=== PATIENT | female | born 1945 | race Caucasian/White ===

== ENCOUNTER → 2017-05-28 09:00 | Outpatient (CLI) | payer MEDICARE, SELFPAY ==
[2017-05-28 10:45] LABS: Anion Gap 9 (5-15); BUN 15 mg/dL (7-18); BUN/Creat Ratio 23.4 RATIO (10-20); Calcium,Total 9.1 mg/dL (8.5-10.1); Chloride 98 mmol/L (98-107); Cholesterol 161 mg/dL (200); Creatinine, Serum 0.64 mg/dL (0.55-1.02); EST Glomerular Filtration Rate 97 mL/min (>60); Est Glom Filt Rate - Afr Amer 117 mL/min (>60); Glucose 177 mg/dL (74-106); High Density Lipoprotein 52 mg/dL; Potassium 3.4 mmol/L (3.5-5.1); Sodium Level 133 mmol/L (136-145); Thyroid Stim Hormone (TSH) 1.05 uIU/mL (0.358-3.74); Triglycerides 81 mg/dL; Very Low Density Lipoprotein 16 mg/dL (5-40)
== END ==
PROVIDERS: Family Provider Family Medicine; PCP Family Medicine; Visit Provider Family Medicine
DX: E87.1 Hypo-osmolality and hyponatremia (principal); E11.9 Type 2 diabetes mellitus without complications; R94.6 Abnormal results of thyroid function studies
CPT/HCPCS: 36415; 80048; 80061; 84443

== ENCOUNTER → 2017-10-05 11:55 | Outpatient (CLI) | payer MEDICARE, SELFPAY ==
[2017-10-05 13:56] LABS: Hematocrit 39.2 % (37-47); Hemoglobin 13.5 g/dl (12.0-15.0); Mean Corp Hgb Conc 34.4 g/gl (32-36); Mean Corpuscular Hgb 29.6 pg (27.0-32.0); Mean Platelet Vol. 11.3 fl (6.2-12.0); Platelet Count 271 K/mm3 (150-450); RBC Distribution Width CV 12.5 % (11.6-14.6); RBC Distribution Width SD 39.4 fl (35.1-43.9); Red Blood Count 4.56 M/mm3 (4.2-5.4); White Blood Count 7.4 K/mm3 (4.4-11.0)
[2017-10-05 13:57] LABS: Scan Indicated on CBC? Y/N NO
[2017-10-05 14:11] LABS: Anion Gap 9 (5-15); BUN 16 mg/dL (7-18); Calcium,Total 9.1 mg/dL (8.5-10.1); Chloride 96 mmol/L (98-107); Creatinine, Serum 0.67 mg/dL (0.55-1.02); EST Glomerular Filtration Rate 92 mL/min (>60); Est Glom Filt Rate - Afr Amer 111 mL/min (>60); Glucose 201 mg/dL (74-106); Potassium 3.7 mmol/L (3.5-5.1); Sodium Level 129 mmol/L (136-145)
== END ==
PROVIDERS: Family Provider Family Medicine; PCP Family Medicine; Visit Provider Family Medicine
DX: E11.9 Type 2 diabetes mellitus without complications (principal); I10 Essential (primary) hypertension
CPT/HCPCS: 36415; 80048; 85027

== ENCOUNTER → 2018-01-05 11:19 | Outpatient (CLI) | payer MEDICARE, SELFPAY ==
[2017-06-01 14:09] VITALS: BMI 28.3
[2018-01-05 14:22] LABS: Anion Gap 9 (5-15); BUN 16 mg/dL (7-18); BUN/Creat Ratio 24.3 RATIO (10-20); Chloride 93 mmol/L (98-107); Creatinine, Serum 0.66 mg/dL (0.55-1.02); EST Glomerular Filtration Rate 93 mL/min (>60); Est Glom Filt Rate - Afr Amer 113 mL/min (>60); Glucose 295 mg/dL (74-106); Potassium 3.9 mmol/L (3.5-5.1); Sodium Level 128 mmol/L (136-145)
--- OUTSIDE RECORDS SUMMARY | 2018-03-02 19:49 | XMS RPT_ITS ---
:1945 Author Organization OHIP Care Team Providers Name Role Phone Black Naye Attending Unavailable Ajay Sanchez Attending Unavailable Ajay Sanchez Primary Care Unavailable Lorena Sal Attending Unavailable Yehuda Gilbert Attending Unavailable Ajay Sanchez Referring Unavailable Ajay Sanchez Primary Care Unavailable Ajay Sanchez Attending Unavailable Ajay Sanchez Primary Care Unavailable Ajay Sanchez Attending Unavailable Ajay Sanchez Primary Care Unavailable PROBLEMS PROBLEMS DATE TYPE CONDITION / CODE ATTENDING STATUS SOURCE Unknown I10 - Essential (primary) Yehuda Gilbert Active [place] [facility] hypertension / Community I10(ICD-10) Hospital Repository Unknown E78.00 - Pure Ofelia, Hiko Active [place] [facility] hypercholesterolemia, Community unspecified / Hospital E78.00(ICD-10) Repository Unknown E78.0 - Pure Ofelia, Yehuda Active [place] [facility] hypercholesterolemia / Community E78.0(ICD-10) Hospital Repository Unknown E87.1 - Hypo-osmolality Ranney, Active [place] [facility] and hyponatremia / [facility] Community E87.1(ICD-10) Hospital Repository PROCEDURES PROCEDURES No Procedure Records FoundRESULTS RESULTS BASIC METABOLIC Collected: 01/05/2018 Status: F Source: [place] PROFILE (BMP) 11:21 AM [facility] REPOSITORY Order Comment: Order Date: 10/06/17 Order Info: 0667-1 - BMP TYPE CODE TESTS RESULT OUT OF RANGE REFERENCE UNITS LAB L501.0100 74-106 mg/dL High GLU 295 Result Comment: Glucose result greater than or equal to 200 mg/dL suggests DIABETES MELLITUS per A.D.A. criteria. Please note revised GLUCOSE reference range effective 2017. LAB L501.1000 7-18 mg/dL Normal BUN 16 LAB L501.1100 0.55-1.02 mg/dL Normal CREAT,SERUM 0.66 Result Comment: The validity of the calculated GFR AND GFRAA in patients over 70 years has not been determined. Clinical correlation is essential. LAB L501.1110 >60 mL/min Normal EST GFR 93 Result Comment: Non- GFR Calc LAB L501.1115 >60 mL/min Normal EST GFR - AA 113 Result Comment: GFR Calc LAB L501.1300 10-20 RATIO High BUN/CRE 24.3 LAB L501.2200 8.5-10.1 mg/dL CA Normal 9.0 LAB L501.5300 136-145 mmol/L Low NA 128 LAB L501.5600 3.5-5.1 mmol/L K Normal 3.9 LAB L501.5900 98-107 mmol/L Low CL 93 LAB L501.6100 21.0-32.0 mmol/L Normal CO2 26.0 LAB L501.6200 5-15 Normal GAP 9 Performed By: #### L500.2500 #### [facility] [address] [place], [address] CBC-COMPLETE BLOOD CNT Collected: 10/05/2017 Status: F Source: [place] NO DIFF 11:56 AM [facility] REPOSITORY Order Comment: Order Date: 10/05/17 Order Info: [id number] - CBC TYPE CODE TESTS RESULT OUT OF RANGE REFERENCE UNITS LAB L100.1000 4.4-11.0 K/mm3 Normal WBC 7.4 LAB L100.1200 4.2-5.4 M/mm3 Normal RBC 4.56 LAB L100.1300 12.0-15.0 g/dl Normal HGB 13.5 LAB L100.1400 37-47 % Normal HCT 39.2 LAB L100.1500 81-99 fL Normal MCV 86.0 LAB L100.1600 27.0-32.0 pg Normal MCH 29.6 LAB L100.1700 32-36 g/gl Normal MCHC 34.4 LAB L100.1810 11.6-14.6 % Normal RDW CV 12.5 LAB L100.1820 35.1-43.9 fl Normal RDW SD 39.4 LAB L100.1900 150-450 K/mm3 Normal PLT 271 LAB L100.2000 6.2-12.0 fl Normal MPV 11.3 Performed By: #### L100.0500, L500.2500 #### [facility] [address] [place], [address] BASIC METABOLIC Collected: 10/05/2017 Status: F Source: [place] PROFILE (BMP) 11:56 AM [facility] REPOS[facility]ORY Order Comment: Order Date: 10/05/17 Order Info: [id number] - BMP TYPE CODE TESTS RESULT OUT OF RANGE REFERENCE UNITS LAB L501.0100 74-106 mg/dL High GLU 201 Result Comment: Glucose result greater than or equal to 200 mg/dL suggests DIABETES MELLITUS per A.D.A. criteria. Please note revised GLUCOSE reference range effective 2017. LAB L501.1000 7-18 mg/dL Normal BUN 16 LAB L501.1100 0.55-1.02 mg/dL Normal CREAT,SERUM 0.67 Result Comment: The validity of the calculated GFR AND GFRAA in patients over 70 years has not been determined. Clinical correlation is essential. LAB L501.1110 >60 mL/min Normal EST GFR 92 Result Comment: Non- GFR Calc LAB L501.1115 >60 mL/min Normal EST GFR - AA 111 Result Comment: GFR Calc LAB L501.1300 10-20 RATIO High BUN/CRE 24.0 LAB L501.2200 8.5-10.1 mg/dL CA Normal 9.1 LAB L501.5300 136-145 mmol/L Low NA 129 LAB L501.5600 3.5-5.1 mmol/L K Normal 3.7 LAB L501.5900 98-107 mmol/L Low CL 96 LAB L501.6100 21.0-32.0 mmol/L Normal CO2 24.0 LAB L501.6200 5-15 Normal GAP 9 Performed By: #### L100.0500, L500.2500 #### [facility] [address] [place], [address] CARDIOLOGY VISIT Observed: 06/01/2017 Status: F Source: [place] REPORT 2:38 PM [facility] REPOSITORY [facility] [address] [place] [address] OFFICE VISIT Date of Service: 06/01/17 MR#: [id number] Acct: [id number] Name: ISIDRO GONZALES Rep #: [id number] : 1945 Provider: Yehuda Gilbert MD Age/Sex: 72/F Location: [facility] Status: Signed [facility] HPI Chief Complaint: Follow up Details: ISIDRO GONZALES, is a 72 F who presents to the office today for follow-up on her blood pressure. She is a lady with a history of hypertension and white coat hypertension who returns for follow-up visit. She denies any chest pain or shortness breath or paroxysmal nocturnal dyspnea pedal edema she tells me that she recently saw you in her office and her blood pressure was under good control. She has not had any neck arm or jaw discomfort suggest angina no dizziness no diaphoresis no near syncope or syncope. Her last echocardiogram was performed in 2014 at other time ejection fraction was noted to be 60% with no wall motion abnormalities present. Her physical exam today demonstrates clear lung waite regular rate and rhythm and no pedal edema. Intake Vital Signs06/01/17 Height 5 ft 2 in 06/01/17 Weight: 155 lb 06/01/17 Body Mass Index (BMI) 28.3 06/01/17 Blood Pressure 182/80 Intake Visit Reasons: 6 wk FU (pt r/s from 12/17/16 to 06/01/17) Allergies No Known Allergies Allergy (Unverified 06/01/17 14:09) Medications diltiazem CD 180 mg capsule,extended release 24 hr 180 mg PO QDAY 05/27/17 [History Confirmed 06/01/17] lisinopril 40 mg tablet 40 mg PO QDAY 05/27/17 [History Confirmed 06/01/17] losartan 100 mg-hydrochlorothiazide 25 mg tablet 1 tab PO QDAY 05/27/17 [History Confirmed 06/01/17] metformin ER 750 mg tablet,extended release 24 hr 750 mg PO QDAY 05/27/17 [History Confirmed 06/01/17] metoprolol tartrate 100 mg tablet 100 mg PO BID 05/27/17 [History Confirmed 06/01/17] [facility] Medical History Hyperlipidemia (Chronic) Hypertension (Chronic) First degree atrioventricular block by electrocardiogram (Chronic) Encounter for long-term current use of high risk medication (Chronic) Carotid bruit (Chronic) Social History Smoking Status: Never smoker alcohol intake: current details: occasional substance use type: does not use ROS Const Const: Negative for fatigue, weakness, weight gain, weight loss, frequent falls or excessive sweating Eyes Eyes: Negative for change in vision, blurry vision or transient loss of vision ENT ENT: Negative for dizziness or balance problems Cardio Chest Pain: No Edema: None Muscle aches with walking: None Resp Respiratory: Negative for SOB with activity or SOB at rest GI GI: Negative vomiting or vomiting blood/hematemesis : Negative for hematuria Musc Musc: Negative for balance problems, muscle aches/ myalgia, muscle weakness or joint pain Skin Skin: Negative non-healing lesions or rash Neuro Neuro: Negative for weakness, blurry vision, dizziness, lightheadedness, frequent falls or orthostatic symptoms Ray Hematologic/Lymphatic: Negative for easy bleeding Endo Endo: Negative for fatigue or excessive sweating Psych Psych: Negative for anxiety or depression Allergy Allergy/Immunology: Negative for hives, Negative for rash Cardiology Exam Const Appearance: cooperative, healthy appearing, well developed, well groomed and no acute distress Nutritional Appearance: well nourished and average body habitus Orientation: alert, awake and oriented x3 Head Head: normal to inspection, normocephalic and atraumatic Ears: hearing grossly normal bilaterally and external ears normal Nose: external nose normal, nasal mucous membranes and turbinates normal, nares normal, septum normal, no nasal discharge Face and Sinus: face symmetric Mouth: oral mucosae normal, tongue normal, oropharynx normal and moist mucous membranes Teeth and gingiva: dentition normal Throat: posterior oropharynx normal, tonsils normal and uvula midline Eyes General: appearance normal, both eyes and all related structures Eyelids: eyelids normal Conjunctivae: conjunctivae normal Pupils: PERRL, normal by confrontation and accommodation normal EOM: EOM intact bilaterally Neck Neck: normal visual inspection, trachea midline and no JVD JVD: +5 Carotids: normal carotid upstroke and bounding pulses Chest Chest inspection: normal inspection of the chest, symmetric chest movement and normal respiratory effort Auscultation: Bilateral: Clear to Auscultation Cardio Palpation: normal PMI Rate: regular rate Rhythm: regular rhythm Heart sounds: S1 normal, S2 normal and normal, physiologic split S2; negative rub, gallop or murmur GI GI: normal to inspection, soft, no hepatosplenomegaly and bowel sounds present Neuro General: alert, awake, oriented x3, no focal sensory deficit, gait normal and moves all extremities Skin Skin: no rashes or lesions noted Extremities Pulses: Normal: Right Femoral Pulse, Left Femoral Pulse, Right Dorsalis Pedis Pulse, Left Dorsalis Pedis Pulse, Right Posterior Tibial Pulse, Left Posterior Tibial Pulse, Right Radial Pulse, Left Radial Pulse Lower Extremity Edema: None: Bilateral Musculoskel Musculoskeletal: No joint tenderness Psych Psychological: normal affect Assessment AND Plan 1. Essential hypertension I10 Plan Her blood pressure appears to be elevated here today she tells me that it is usually better in the office as you know we have performed ambulatory 25 monitoring on her and they have been also elevated. She remains on medications which she is compliant with. Her left ventricular evaluation however does not demonstrate any significant thickening to suggest sustained blood pressures. Her most recent chemistry profile demonstrated mild hypokalemia only. 2. Pure hypercholesterolemia E78.00; E78.0 Plan She remains on lipid-lowering medication. Her most recent lipid profile demonstrated a cluster 161 LDL of 93 and HDL of 52. Thank you for allowing me to participate in the care of your patient. 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) Coding Level of Care Code Off vis,est,level 3 Diagnoses Essential hypertension I10 Hypertension type: essential hypertension Pure hypercholesterolemia E78.00; E78.0 Hyperlipidemia type: pure hypercholesterolemia Coding Level of Care Code Off vis,est,level 3 Diagnoses Essential hypertension I10 Hypertension type: essential hypertension Pure hypercholesterolemia E78.00; E78.0 Hyperlipidemia type: pure hypercholesterolemia 06/01/17 1438 <Electronically signed by Yehuda Gilbert MD> Date Yehuda Gilbert MD Cosigner Signature: Date (if applicable) CC: Ajay Sanchez MD BASIC METABOLIC Collected: 05/28/2017 Status: F Source: [place] PROFILE (BMP) 9:02 AM [facility] REPOS[facility] Order Comment: Order Date: 05/18/17 Order Info: [id number] - BMP Order Info: [id number] - LIPID Order Info: 3016-3 - TSH TYPE CODE TESTS RESULT OUT OF RANGE REFERENCE UNITS LAB L501.0100 74-106 mg/dL High GLU 177 Result Comment: Fasting Glucose result greater than or equal to 126 mg/dL suggests DIABETES MELLITUS per A.D.A. criteria. Please note revised GLUCOSE reference range effective 2017. LAB L501.1000 7-18 mg/dL Normal BUN 15 LAB L501.1100 0.55-1.02 mg/dL Normal CREAT,SERUM 0.64 Result Comment: The validity of the calculated GFR AND GFRAA in patients over 70 years has not been determined. Clinical correlation is essential. LAB L501.1110 >60 mL/min Normal EST GFR 97 Result Comment: Non- GFR Calc LAB L501.1115 >60 mL/min Normal EST GFR - AA 117 Result Comment: GFR Calc LAB L501.1300 10-20 RATIO High BUN/CRE 23.4 LAB L501.2200 8.5-10.1 mg/dL CA Normal 9.1 LAB L501.5300 136-145 mmol/L Low NA 133 LAB L501.5600 3.5-5.1 mmol/L Low K 3.4 LAB L501.5900 98-107 mmol/L CL Normal 98 LAB L501.6100 21.0-32.0 mmol/L Normal CO2 26.0 LAB L501.6200 5-15 Normal GAP 9 Performed By: #### L500.2500, L500.4100, L501.9520 #### [facility] [address] [place], [place], [address] LIPID PROFILE Collected: 05/28/2017 Status: F Source: [place] 9:02 AM [facility]POS[facility] Order Comment: Order Date: 05/18/17 Order Info: [id number] - BMP Order Info: [id number] - LIPID Order Info: 3016-3 - TSH TYPE CODE TESTS RESULT OUT OF RANGE REFERENCE UNITS LAB L501.4900 200 mg/dL Normal CHOL 161 Result Comment: <200 mg/dL Desirable 200-240 mg/dL Borderline >240 mg/dL High Risk LAB L501.5000 mg/dL Normal TRIG 81 Result Comment: The drugs N-Acetylcysteine and Metamizole may falsely depress this assay. Serum Triglycerides Reference Interval Normal <150 mg/dL Borderline high 150 - 199 mg/dL High 200 - 499 mg/dL Very High > or = 500 mg/dL LAB L501.6400 mg/dL Normal HDL 52 Result Comment: The drugs N-Acetylcysteine and Metamizole may falsely depress this assay. Reference Range HDL <40 mg/dL Low HDL Cholesterol HDL >or= 60 mg/dL High HDL Cholesterol LAB L501.6500 0-130 mg/dL Normal LDL 93 LAB L501.6600 5-40 mg/dL Normal VLDL 16 Performed By: #### L500.2500, L500.4100, L501.9520 #### [facility] [address] [place], [address] THYROID STIM HORMONE Collected: 05/28/2017 Status: F Source: [place] (TSH) 9:02 AM [facility]POS[facility] Order Comment: Order Date: 05/18/17 Order Info: [id number] - BMP Order Info: [id number] - LIPID Order Info: 3016-3 - TSH TYPE CODE TESTS RESULT OUT OF RANGE REFERENCE UNITS LAB L501.9520 0.358-3.74 uIU/mL Normal TSH 1.05 Performed By: #### L500.2500, L500.4100, L501.9520 #### [facility] [address] [place], [address] ALLERGIES ALLERGIES DATE TYPE / CODE NAME / CODE REACTION SEVERITY SOURCE 06/01/2017 Drug No Known Unknown [facility] Allergy/4160 Allergies/F00 Hospital 46186(SNOMED 8031831(RXNOR Repository CT) M) ENCOUNTERS ENCOUNTERS ADMIT/DISCHARGE ACCOUNT ADMITTING ENCOUNTER LOCATION SOURCE NUMBER CLASS 01/05/2018 [id number] Amb[place] [facility] ing:MFPLAB Repository 10/05/2017 [id number] Ambulatory [place] 5 [facility] ing:MFPLAB Repository 06/01/2017/ [id number] Ambulatory [facility]MSBuilding:B [place] [facility] 0 [facility] Repository 05/31/2017 [id number] Ambulatory [facility]:B [place] 0 [facility] Repository 05/28/2017 [id number] Ambulatory [place] 8 [facility] ing:MFPLAB Repository 05/27/2017 [id number] Ambulatory BMS [place] [facility] Repository PAYERS PAYERS ENCOUNTER GUARANTOR PAYER SUBSCRIBER SOURCE 01/05/2018 MOZELL [id number] Primary [facility] [place] [facility] [id number] [id number]: (448) [facility] [phone] () Number: [id number] [facility] [address]RE: 01/05/2018 Secondary NOT GIVENUNK [place] Insurance:SELF PAY [facility] Number: Effective Repository Date:2018-01-05 10/05/2017 MOZELL [id number] Primary [place] Insurance:[place] YODER[place]OB: [place] SECURE CARE [id number] [id number]: [phone]) MEDICAREPolicy Repository [phone] () Number: [id number] Date: [address] [address]JF: 10/05/2017 Secondary NOT GIVENUNK [place] Insurance:SELF PAY [facility] Number: Effective Repository Date:2017-10-05 06/01/2017 MOZELL [id number] [facility] [place]ER[place]OB[place] [id number] [id number]: ([phone]) MEDICAREPolicy Repository [phone] () Number: [id number] Date: [address] [address]AT: 06/01/2017 Secondary NOT GIVENUNK [place] Insurance:SELF PAY [facility] Number: Effective Repository Date:2017-06-01 05/31/2017 Mozell [id number] Primary NOT GIVENUNK [place] Insurance:SELF PAY [facility] [address]Ecu: [phone]) Number: Effective Repository [phone] () Date:2017-05-31 05/28/2017 MOZELL [id number] Primary [facility] [place]ODER[place]OB[place] [id number] [id number]: [phone]) MEDICAREPolicy Repository [phone] (HP) Number: [id number] Date: [address] [address]YX: 05/28/2017 Secondary NOT GIVENUNK [place] Insurance:SELF PAY [facility] Number: Effective Repository Date:2017-05-28 05/27/2017 Isidro Agosto Primary NOT GIVENUNK [place] Insurance:SELF PAY [facility] [id number]: [phone]) Number: Effective Repository [phone] () Date:2017-05-27
== END ==
PROVIDERS: Family Provider Family Medicine; PCP Family Medicine; Visit Provider Family Medicine
DX: E87.1 Hypo-osmolality and hyponatremia (principal)
CPT/HCPCS: 36415; 80048

== ENCOUNTER → 2018-02-21 11:34 | Outpatient (CLI) | payer MEDICARE, SELFPAY ==
[2017-06-01 14:09] VITALS: BMI 28.3
[2018-02-21 14:15] LABS: Anion Gap 12 (5-15); BUN 18 mg/dL (7-18); BUN/Creat Ratio 26.5 RATIO (10-20); Calcium,Total 9.2 mg/dL (8.5-10.1); Chloride 92 mmol/L (98-107); Creatinine, Serum 0.68 mg/dL (0.55-1.02); EST Glomerular Filtration Rate 90 mL/min (>60); Est Glom Filt Rate - Afr Amer 109 mL/min (>60); Glucose 262 mg/dL (74-106); Potassium 3.6 mmol/L (3.5-5.1); Sodium Level 130 mmol/L (136-145)
== END ==
PROVIDERS: Family Provider Family Medicine; PCP Family Medicine; Visit Provider Family Medicine
DX: I10 Essential (primary) hypertension (principal)
CPT/HCPCS: 36415; 80048

== ENCOUNTER → 2018-05-18 09:18 | Outpatient (CLI) | payer MEDICARE, SELFPAY ==
[2017-06-01 14:09] VITALS: BMI 28.3
[2018-05-18 10:34] LABS: Hematocrit 39.6 % (37-47); Hemoglobin 13.8 g/dl (12.0-15.0); Mean Corp Hgb Conc 34.8 g/gl (32-36); Mean Corpuscular Hgb 29.7 pg (27.0-32.0); Mean Corpuscular Volume 85.2 fL (81-99); Mean Platelet Vol. 11.8 fl (6.2-12.0); Platelet Count 257 K/mm3 (150-450); RBC Distribution Width CV 13.1 % (11.6-14.6); RBC Distribution Width SD 40.3 fl (35.1-43.9); Red Blood Count 4.65 M/mm3 (4.2-5.4); White Blood Count 7.1 K/mm3 (4.4-11.0)
[2018-05-18 10:35] LABS: Scan Indicated on CBC? Y/N NO
[2018-05-18 11:27] LABS: Anion Gap 9 (5-15); BUN 14 mg/dL (7-18); BUN/Creat Ratio 23.5 RATIO (10-20); Calcium,Total 8.7 mg/dL (8.5-10.1); Chloride 104 mmol/L (98-107); Cholesterol 179 mg/dL (200); EST Glomerular Filtration Rate 105 mL/min (>60); Est Glom Filt Rate - Afr Amer 127 mL/min (>60); Glucose 186 mg/dL (74-106); High Density Lipoprotein 47 mg/dL; Potassium 3.7 mmol/L (3.5-5.1); Sodium Level 138 mmol/L (136-145); Thyroid Stim Hormone (TSH) 0.62 uIU/mL (0.358-3.74); Triglycerides 80 mg/dL; Very Low Density Lipoprotein 16 mg/dL (5-40)
[2018-05-18 11:28] LABS: Vitamin D,25 Hydroxy 28.9 ng/mL (29.95-100.01)
== END ==
PROVIDERS: Family Provider Family Medicine; PCP Family Medicine; Referring Provider Family Medicine; Visit Provider Family Medicine
DX: E11.9 Type 2 diabetes mellitus without complications (principal); I10 Essential (primary) hypertension; E87.1 Hypo-osmolality and hyponatremia; E55.9 Vitamin D deficiency, unspecified
CPT/HCPCS: 36415; 80048; 80061; 82306; 84443; 85027

== ENCOUNTER → 2018-07-11 | Outpatient (CLI) | payer MEDICARE, SELFPAY ==
[2018-06-07 10:03] VITALS: BMI 29.1
--- NOTE | 2018-07-11 08:59 | CDU_ITS ---
Reason For Study: BRUIT Rt. Velocities/BP Lt. Velocities/BP Prox CCA 86.9/16.4 cm/sec. Prox CCA 83.8/22.4 cm/sec. Mid CCA 76.8/14.2 cm/sec. Mid CCA 81.6/20.2 cm/sec. Dist CCA 76.8/14.2 cm/sec. Dist CCA 86.0/13.6 cm/sec. Prox ICA 66.4/15.5 cm/sec. Prox ICA 75.0/13.6 cm/sec. Mid ICA 61.2/11.6 cm/sec. Mid ICA 86.0/15.8 cm/sec. Dist ICA 46.1/13.1 cm/sec. Dist ICA 83.8/20.2 cm/sec. Rt. ICA/CCA = 66.4/76.8=0.86. Lt. ICA/CCA = 86.0/81.6=1.0. Prox ECA 110.7/12.9 cm/sec. Prox ECA 88.2/7.0 cm/sec. Rt. Vert. 80.9/14.6. cm/sec. Lt. Vert. 45.7/0.0 cm/sec. Right Extracranial There is intimal thickening but no significant atherosclerotic plaque noted in the right common carotid artery. There is homogeneous, smooth atherosclerotic plaque noted in the right internal carotid artery. There is no significant atherosclerotic plaque noted in the right external carotid artery. Antegrade flow is noted in the right vertebral artery. Left Extracranial There is homogeneous, smooth atherosclerotic plaque noted in the left common carotid artery. There is homogeneous, smooth atherosclerotic plaque noted in the left internal carotid artery. There is intimal thickening but no significant atherosclerotic plaque noted in the left external carotid artery. Antegrade flow is noted in the left vertebral artery. There is heterogeneous, irregular atherosclerotic plaque noted in the left bulb. Interpretation Summary Mild (<50%) stenosis right extracranial internal carotid. Mild (<50%) stenosis left extracranial internal carotid. Flow within the vertebral arteries is antegrade bilaterally. Ordering Physician: Lorena Good Referring Physician: Oziel Luis Performed By: Adelita Jara, LAZ, RVT
== END | disposition home or self-care (01) ==
LOC: CVS 08:58
PROVIDERS: Family Provider Family Medicine; PCP Family Medicine; Referring Provider Physician Assistant Medical; Visit Provider Physician Assistant Medical
DX: R09.89 Other specified symptoms and signs involving the circulatory and respiratory systems (principal)
CPT/HCPCS: 93880

== ENCOUNTER → 2018-10-11 | Outpatient (CLI) | payer MEDICARE, SELFPAY ==
[2018-06-07 10:03] VITALS: BMI 29.1
[2018-10-11 10:53] LABS: Anion Gap 8 (5-15); BUN 14 mg/dL (7-18); BUN/Creat Ratio 21.6 RATIO (10-20); Chloride 103 mmol/L (98-107); Creatinine, Serum 0.65 mg/dL (0.55-1.02); EST Glomerular Filtration Rate 95 mL/min (>60); Est Glom Filt Rate - Afr Amer 115 mL/min (>60); Glucose 184 mg/dL (74-106); Potassium 3.1 mmol/L (3.5-5.1); Sodium Level 137 mmol/L (136-145)
== END | disposition home or self-care (01) ==
LOC: MFPLAB 09:23
PROVIDERS: Family Provider Family Medicine; PCP Family Medicine; Referring Provider Family Medicine; Visit Provider Family Medicine
DX: I10 Essential (primary) hypertension (principal)
CPT/HCPCS: 36415; 80048; 82306

== ENCOUNTER → 2019-01-11 11:31 | Outpatient (CLI) | payer MEDICARE, SELFPAY ==
[2018-06-07 10:03] VITALS: BMI 29.1
[2019-01-11 16:26] LABS: Anion Gap 7 (5-15); BUN 15 mg/dL (7-18); BUN/Creat Ratio 25.3 RATIO (10-20); Calcium,Total 9.5 mg/dL (8.5-10.1); Chloride 99 mmol/L (98-107); Creatinine, Serum 0.59 mg/dL (0.55-1.02); EST Glomerular Filtration Rate 105 mL/min (>60); Est Glom Filt Rate - Afr Amer 127 mL/min (>60); Glucose 123 mg/dL (74-106); Potassium 3.5 mmol/L (3.5-5.1); Sodium Level 133 mmol/L (136-145)
[2019-01-11 16:32] LABS: Vitamin D,25 Hydroxy 45.2 ng/mL (29.95-100.01)
== END ==
PROVIDERS: Family Provider Family Medicine; PCP Family Medicine; Referring Provider Family Medicine; Visit Provider Family Medicine
DX: E87.6 Hypokalemia (principal); E55.9 Vitamin D deficiency, unspecified
CPT/HCPCS: 36415; 80048; 82306

== ENCOUNTER → 2019-08-30 11:03 | Outpatient (CLI) | payer MEDICARE, SELFPAY ==
[2019-05-30 08:09] VITALS: BMI 28.9
[2019-08-30 13:13] LABS: ALB/GLOB Ratio 0.7 RATIO (0.9-2.4); AST(SGOT) 25 U/L (15-37); Alanine Aminotransfer ALT/SGPT 31 U/L (13-56); Albumin, Serum 3.5 g/dL (3.2-5.0); Alkaline Phosphatase 92 U/L (45-117); Anion Gap 5 (5-15); BUN 17 mg/dL (7-18); BUN/Creat Ratio 27.8 RATIO (10-20); Calcium,Total 8.9 mg/dL (8.5-10.1); Chloride 101 mmol/L (98-107); Cholesterol 172 mg/dL (200); Creatinine, Serum 0.61 mg/dL (0.55-1.02); EST Glomerular Filtration Rate 101 mL/min (>60); Est Glom Filt Rate - Afr Amer 123 mL/min (>60); Globulin 4.8 g/dL (2.2-4.2); Glucose 176 mg/dL (74-106); High Density Lipoprotein 41 mg/dL; Potassium 3.5 mmol/L (3.5-5.1); Protein, Total 8.3 g/dL (6.4-8.2); Sodium Level 134 mmol/L (136-145); Triglycerides 123 mg/dL; Very Low Density Lipoprotein 25 mg/dL (5-40)
== END ==
PROVIDERS: PCP Family Medicine; Referring Provider Family Medicine; Visit Provider Family Medicine
DX: E11.9 Type 2 diabetes mellitus without complications (principal)
CPT/HCPCS: 36415; 80053; 80061

== ENCOUNTER → 2019-09-06 07:52 | Outpatient (CLI) | payer MEDICARE, SELFPAY ==
[2019-05-30 08:09] VITALS: BMI 28.9
--- NOTE | 2019-09-06 07:57 | RDU_ITS ---
Reason For Study: Benign essential hypertension Right Renal Artery Left Renal Artery Right renal artery ostium 97.9/15.7 Left renal artery ostium 125.3/19.4 RSV/EDV. PSV/EDV. Right renal artery proximal Left renal artery proximal PSV/EDV 161.8/30.3 PSV/EDV. 114.3/21.2 . Right renal artery mid 158.2/23 Left renal artery mid 86.4/17.2 PSV/EDV. PSV/EDV . Right renal artery distal Left renal artery distal 92.4/17.9 139.9/28.5 PSV/EDV. PSV/EDV. Right Renal Parenchyma Left Renal Parenchyma Upper Pole Medula 30/5.8 PSV/EDV. Left upper pole medulla 36.8/7.3 Right upper pole medulla EDR 0.19 . PSV/EDV . Right upper pole medulla R.I. Left upper pole medulla EDR 0.20 . 0.81 . Left upper pole medulla R.I. 0.80 . Upper Dylan Cortx 25.6/4.7 PSV/EDV. UP Cortex 25.7/5.5 PSV/EDV. Right upper pole cortex EDR 0.18 . Left upper pole cortex EDR 0.21 . Right upper pole cortex R.I. 0.82 . Left upper pole cortex R.I. 0.79 . Right lower Pole medulla 30.6/5.8 Left lower Pole medulla 37.4/8.5 PSV/EDV . PSV/EDV . Right lower pole medulla EDR 0.19 . Left lower pole medulla EDR 0.23 . Right lower pole medulla R.I. Left lower pole medulla R.I. 0.77 . 0.81 . Lower Pole Cortx 28.2/5.5 PSV/EDV. Lower Pole Cortex 21.8/5.3 PSV/EDV. Left lower pole cortex EDR 0.20 . Right lower pole cortex EDR 0.24 . Left lower pole cortex R.I. 0.81 . Right lower pole cortex R.I. 0.76 . Left Renal Hilar Right Renal Hilar LT Hilar avg 61.4/15.3 PSV/EDV . Right Hilar avg 59/10.6 PSV/EDV. Left hilar acceleration time 50 Right hilar acceleration time 60 m/sec. m/sec. Left Renal Dimensions Right Renal Dimensions Left kidney size 10.77 cm . Right kidney size 9.71 cm . Left cortical dimension 1.53 cm . Right cortical dimension 1.58 cm . Aorta Proximal abdominal aorta 1.70 x 1.72 cm . Proximal abdominal aorta peak systolic velocity is 101.6 cm/sec . Distal abdominal aorta 1.16 x 1.20 cm . Distal abdominal aorta peak systolic velocity is 132.6 cm/sec . Interpretation Summary Dimensions of the intra-abdominal aorta appear normal, without evidence of aneurysmal dilatation. Renal artery velocities are bilaterally normal. Acceleration times are normal bilaterally. There is no evidence of hemodynamically significant renal artery stenosis on either side. Renovascular resistance appears to be bilaterally elevated . The right cortical dimension is increased. The left cortical dimension is increased. Kidneys are normal in size, though the left kidney is more than one centimeter larger than the right kidney. Ordering Physician: Iker Sanchez Referring Physician: Iker Sanchez Performed By: Gwen Crooks RVT
== END ==
PROVIDERS: PCP Family Medicine; Referring Provider Family Medicine; Visit Provider Family Medicine
DX: I10 Essential (primary) hypertension (principal)
CPT/HCPCS: 93975

== ENCOUNTER → 2020-05-30 09:25 | Outpatient (CLI) | payer MEDICARE, SELFPAY ==
[2020-05-28 13:34] VITALS: BMI 28.7
[2020-05-30 13:13] LABS: Vitamin B12 593 pg/mL (211-911); Vitamin D,25 Hydroxy 40.4 ng/mL
[2020-05-30 13:40] LABS: ALB/GLOB Ratio 0.8 RATIO (0.9-2.4); AST(SGOT) 21 U/L (15-37); Alanine Aminotransfer ALT/SGPT 25 U/L (13-56); Albumin, Serum 3.7 g/dL (3.2-5.0); Alkaline Phosphatase 81 U/L (45-117); Anion Gap 5 (5-15); BUN 24 mg/dL (7-18); BUN/Creat Ratio 32.9 RATIO (10-20); Calcium,Total 8.8 mg/dL (8.5-10.1); Chloride 104 mmol/L (98-107); Cholesterol 179 mg/dL (200); Creatinine, Serum 0.73 mg/dL (0.55-1.02); EST Glomerular Filtration Rate 82 mL/min (>60); Est Glom Filt Rate - Afr Amer 100 mL/min (>60); Globulin 4.6 g/dL (2.2-4.2); Glucose 202 mg/dL (74-106); High Density Lipoprotein 46 mg/dL; Potassium 3.4 mmol/L (3.5-5.1); Protein, Total 8.3 g/dL (6.4-8.2); Sodium Level 134 mmol/L (136-145); Thyroid Stim Hormone (TSH) 0.63 uIU/mL (0.358-3.74); Triglycerides 88 mg/dL; Very Low Density Lipoprotein 18 mg/dL (5-40)
== END ==
PROVIDERS: PCP Family Medicine; Visit Provider Family Medicine
DX: E11.9 Type 2 diabetes mellitus without complications (principal); E55.9 Vitamin D deficiency, unspecified
CPT/HCPCS: 36415; 80053; 80061; 82306; 82607; 84443

== ENCOUNTER → 2020-06-12 13:06 | Outpatient (CLI) | payer MEDICARE, SELFPAY ==
[2020-05-28 13:34] VITALS: BMI 28.7
--- NOTE | 2020-06-12 13:08 | ECHOD_ITS ---
Reason For Study: HYPERTENSION Procedure This was a 2D Doppler, Color Flow transthoracic echocardiogram. Exam performed in department. Left Ventricle Normal LV size. Left ventricular systolic function is normal. The estimated ejection fraction is 60 %. Stage 1 diastolic dysfunction. No regional wall motion abnormalities noted. Right Ventricle Normal RV size. Normal systolic function. Atria Normal left atrium. Normal right atrium. Mitral Valve Normal mitral valve. Tricuspid Valve Normal tricuspid valve. Mild (1+) tricuspid valve insufficiency. Pulmonary artery systolic pressure is 34 mmHg. Aortic Valve Normal aortic valve. Trisinus/trileaflet aortic valve. Pulmonic Valve Normal pulmonic valve. Great Vessels Normal aortic root. The pulmonary artery is normal size. Normal inferior vena cava. Pericardium/Pleural No pericardial effusion. MMode/2D Measurements & Calculations LVIDd: 4.8 cm IVSd: 0.93 cm Ao root diam: 3.2 cm LVIDs: 3.1 cm LVPWd: 0.93 cm RVDd: 3.6 cm FS: 34.4 % LAV(MOD-bp): 61.5 ml LA A4 area: 20.6 cm2 LA dimension(2D): 3.6 cm LAV(MOD-bp) Indexed: 36.1 ml/m2 LAV(MOD-sp2): 57.3 ml LAV(MOD-sp4): 57.0 ml RA A4 area: 21.2 cm2 Time Measurements MV dec time: 0.18 sec Doppler Measurements & Calculations MV E max leonard: 89.3 cm/sec Lat Peak E' Leonard: 6.9 cm/sec Med Peak E' Leonard: 6.8 cm/sec MV A max leonard: 103.6 cm/sec E/E' lat: 12.9 E/E' med: 13.1 MV E/A: 0.86 Ao V2 max: 139.6 cm/sec LV V1 max: 116.4 cm/sec PA V2 max: 124.5 cm/sec Ao max P.8 mmHg LV V1 max P.4 mmHg TR max leonard: 268.5 cm/sec TR max P.8 mmHg ECHO/Echo Complete Interpretation Summary Normal LV size. Left ventricular systolic function is normal. The estimated ejection fraction is 60 %. Stage 1 diastolic dysfunction. Pulmonary artery systolic pressure is 34 mmHg. Ordering Physician: Lorena Good Referring Physician: Ajay Sanchez Performed By: Adelita Jara RDCS, RVT
== END ==
PROVIDERS: PCP Family Medicine; Referring Provider Physician Assistant Medical; Visit Provider Physician Assistant Medical
DX: R01.1 Cardiac murmur, unspecified (principal)
CPT/HCPCS: 93306

== ENCOUNTER 2021-05-22 09:41 | Outpatient (CLI) | payer MEDICARE, SELFPAY ==
[2021-05-22 12:17] LABS: ALB/GLOB Ratio 0.8 RATIO (0.9-2.4); AST(SGOT) 18 U/L (15-37); Alanine Aminotransfer ALT/SGPT 26 U/L (13-56); Albumin, Serum 3.5 g/dL (3.2-5.0); Alkaline Phosphatase 82 U/L (45-117); Anion Gap 7 (5-15); BUN 17 mg/dL (7-18); Chloride 100 mmol/L (98-107); Cholesterol 177 mg/dL (200); Creatinine, Serum 0.63 mg/dL (0.55-1.02); EST Glomerular Filtration Rate 98 mL/min (>60); Est Glom Filt Rate - Afr Amer 118 mL/min (>60); Globulin 4.3 g/dL (2.2-4.2); Glucose 242 mg/dL (74-106); High Density Lipoprotein 44 mg/dL; Protein, Total 7.8 g/dL (6.4-8.2); Sodium Level 132 mmol/L (136-145); Triglycerides 128 mg/dL; Very Low Density Lipoprotein 26 mg/dL (5-40)
== END 2021-05-22 23:59 | disposition home or self-care (01) ==
LOC: MFPLAB 09:42
PROVIDERS: PCP Family Medicine; Referring Provider Family Medicine; Visit Provider Family Medicine
DX: E11.9 Type 2 diabetes mellitus without complications (principal)
CPT/HCPCS: 36415; 80053; 80061

== ENCOUNTER → 2021-08-26 | Outpatient (CLI) | payer MEDICARE, SELFPAY ==
[2021-08-28 13:07] LABS: PROEL- A/G Ratio 0.9 (0.7-1.7); PROEL- Albumin 3.6 g/dL (2.9-4.4); PROEL- Alpha-1 Globulin 0.2 g/dL (0.0-0.4); PROEL- Beta Globulin 1.4 g/dL (0.7-1.3); PROEL- Gamma Globulin 1.5 g/dL (0.4-1.8); PROEL- Globulin, Total 4.1 g/dL (2.2-3.9); PROEL- TOTAL PROTEIN 7.7 g/dL (6.0-8.5); PROELU- Albumin, Urine 70.1 % (.); PROELU- Alpha-1-Globulin,Ur 4.7 % (.); PROELU- Alpha-2-Globulin,Ur 4.6 % (.); PROELU- Beta Globulin, Ur 11.7 % (.); PROELU- Gamma Globulin, Ur 8.9 % (.); Total Protein, Ur 124.9 mg/dL (Not Estab.)
== END | disposition home or self-care (01) ==
LOC: MFPLAB 11:00
PROVIDERS: PCP Family Medicine; Visit Provider Family Medicine
DX: E88.09 Other disorders of plasma-protein metabolism, not elsewhere classified (principal)
CPT/HCPCS: 36415; 84165; 84166

== ENCOUNTER → 2022-06-04 | Outpatient (CLI) | payer MEDICARE, SELFPAY ==
[2022-06-04 10:53] LABS: Vitamin B12 494 pg/mL (211-911)
== END | disposition home or self-care (01) ==
LOC: MFPLAB 09:10
PROVIDERS: PCP Family Medicine; Visit Provider Family Medicine
DX: E11.65 Type 2 diabetes mellitus with hyperglycemia (principal)
CPT/HCPCS: 36415; 82607

== ENCOUNTER → 2023-02-19 | Outpatient (CLI) | payer MEDICARE, SELFPAY ==
[2023-02-19 12:46] LABS: ALB/GLOB Ratio 0.8 RATIO (0.9-2.4); AST(SGOT) 20 U/L (15-37); Alanine Aminotransfer ALT/SGPT 26 U/L (13-56); Albumin, Serum 3.7 g/dL (3.2-5.0); Alkaline Phosphatase 82 U/L (45-117); Anion Gap 8 (5-15); BUN 20 mg/dL (7-18); BUN/Creat Ratio 28.4 RATIO (10-20); Calcium,Total 9.3 mg/dL (8.5-10.1); Chloride 103 mmol/L (98-107); Cholesterol 185 mg/dL (200); EST Glomerular Filtration Rate 85 mL/min (>60); Est Glom Filt Rate - Afr Amer 103 mL/min (>60); Globulin 4.5 g/dL (2.2-4.2); Glucose 272 mg/dL (74-106); High Density Lipoprotein 45 mg/dL; Potassium 3.8 mmol/L (3.5-5.1); Protein, Total 8.2 g/dL (6.4-8.2); Sodium Level 135 mmol/L (136-145); Thyroid Stim Hormone (TSH) 0.75 uIU/mL (0.358-3.74); Triglycerides 145 mg/dL; Very Low Density Lipoprotein 29 mg/dL (5-40)
== END | disposition home or self-care (01) ==
LOC: MFPLAB 10:19
PROVIDERS: PCP Family Medicine; Visit Provider Family Medicine
DX: E11.65 Type 2 diabetes mellitus with hyperglycemia (principal); E55.9 Vitamin D deficiency, unspecified
CPT/HCPCS: 36415; 80053; 80061; 82306; 84443

== ENCOUNTER → 2023-09-07 | Outpatient (CLI) | payer MEDICARE, SELFPAY ==
[2023-09-07 13:00] LABS: Anion Gap 8 (5-15); BUN 32 mg/dL (7-18); BUN/Creat Ratio 31.4 RATIO (10-20); Calcium,Total 9.7 mg/dL (8.5-10.1); Chloride 95 mmol/L (98-107); Creatinine, Serum 1.02 mg/dL (0.55-1.02); EST Glomerular Filtration Rate 56 mL/min (>60); Est Glom Filt Rate - Afr Amer 67 mL/min (>60); Glucose 278 mg/dL (74-106); Potassium 5.1 mmol/L (3.5-5.1); Sodium Level 124 mmol/L (136-145)
== END | disposition home or self-care (01) ==
LOC: MFPLAB 10:45
PROVIDERS: PCP Family Medicine; Visit Provider Family Medicine
DX: E11.59 Type 2 diabetes mellitus with other circulatory complications (principal)
CPT/HCPCS: 36415; 80048

== ENCOUNTER → 2023-11-08 | Outpatient (CLI) | payer MEDICARE, SELFPAY ==
[2023-11-08 16:13] LABS: Anion Gap 9 (5-15); BUN 18 mg/dL (7-18); BUN/Creat Ratio 22.8 RATIO (10-20); Calcium,Total 9.7 mg/dL (8.5-10.1); Chloride 98 mmol/L (98-107); Creatinine, Serum 0.79 mg/dL (0.55-1.02); EST Glomerular Filtration Rate 74 mL/min (>60); Est Glom Filt Rate - Afr Amer 90 mL/min (>60); Glucose 247 mg/dL (74-106); Potassium 4.1 mmol/L (3.5-5.1); Sodium Level 130 mmol/L (136-145)
[2023-11-09 14:23] LABS: Thyroid Stim Hormone (TSH) 0.397 uIU/mL (0.358-3.740)
== END | disposition home or self-care (01) ==
LOC: MFPLAB 11:17
PROVIDERS: PCP Family Medicine; Visit Provider Family Medicine
DX: E87.1 Hypo-osmolality and hyponatremia (principal); E03.9 Hypothyroidism, unspecified
CPT/HCPCS: 36415; 80048; 84443

== ENCOUNTER 2024-09-19 10:07 | Emergency (ER) | payer MEDICARE, SELFPAY ==
[2024-09-19 10:07] VITALS: BP 199/73; PULSE 79; RESP 14; TEMP 36.6; O2SAT 98; BMI 28.8
--- NOTE | 2024-09-19 10:21 | EDS_ITS ---
HPI History of Present Illness Chief Complaint: Fall Detail of Chief Complaint: Trauma to forehead, face and nose Informant: patient Onset/Context/Timing Onset: Hours Mechanism/Context: Blunt Injury and Fall Location of pain/injuries: - (Forehead, Dylan orbital bilateral and nose) Quality of Pain: Dull Current Severity: Mild Maximum Severity: Mild Worsened by: Nothing Relieved by: Nothing Associated Symptoms Associated Symptoms: Positive for Amnesia; Negative for Parasthesias, Weakness, Loss of function, Inability to ambulate or Loss of consciousness Narrative Narrative: Patient is 79-year-old woman. Patient apparently tripped falling forward. She did not break her fall based on no injury to her fingers. She does not recall. She does complain of facial/head pain. She denies double vision blurred vision loss of vision. Denies change in her hearing. She denies malalignment of her teeth. She denies neck pain. She denies paresthesia, anesthesia or motor w eakness. She denies chest pain or shortness of breath. Prior similar symptoms: No Recent Illness/Hospitalization: No [facility] Medical History Type 2 diabetes mellitus Essential (primary) hypertension Hyperlipidemia First degree atrioventricular block by electrocardiogram Encounter for long-term current use of high risk medication Carotid bruit Home Medications ?Medication ?Instructions ?Recorded ?Last Taken ?Type metformin 750 mg tablet,extended 750 mg PO QDAY Unknown History release 24 hr hydrochlorothiazide 12.5 mg capsule 12.5 mg PO DAILY 0 05/30/19 Unknown History lisinopril 40 mg tablet 40 mg PO QDAY #90 tabs 05/29 Unknown Rx losartan 100 mg tablet 100 mg PO DAILY 90 days #90 tabs 05/30/19 Unknown Rx glimepiride 4 mg tablet 8 mg PO DAILY 09/16/23 Unkno wn History metoprolol tartrate 100 mg tablet 100 mg PO BID #180 t abs 05/10/24 Unknown Rx diltiazem HCl 180 mg 180 mg PO QDAY #90 caps 08/08 06/02 Unknown Rx capsule,extended release 24 hr Allergy/AdvReac Type Severity Reaction Status Date / Time amlodipine AdvReac ankle Verified 09/19/24 10:08 swelling Family History Other Adopted Social History Smoking Status: Never smoker alcohol intake: current details: occasional substance use type: does not use ROS ROS ED Constitutional Constitutional ED: Denies chills or fever(s) Eyes Eyes: Denies blurry vision or change in vision ENT ENT ED: Reports other Details: Denies epistaxis. Does complain of nose pain. ; Denies rhinorrhea or sore throat Cardiovascular Cardiovascular: Denies chest pain or palpitations Respiratory/Chest Respiratory/Chest: Denies cough or dyspnea Gastrointestinal Gastrointestinal: Denies nausea or vomiting Musculoskeletal Musculoskeletal: Denies arthralgias, myalgias or neck pain Integumentary Reports Abrasions Neurologic Neurologic: Denies headache(s), paresthesias or weakness Hematologic/Lymphatic Hematologic/Lymphatic: Denies easy bleeding or easy bruising EXAM Physical Exam Const Vital Signs: 09/19/24 10:07 09/19/24 10:07 Temperature 98 F Temperature Source Temporal Pulse Rate 79 Respiratory Rate 14 Blood Pressure 199/73 H Blood Pressure Mean 115 Pulse Ox 98 Oxygen Delivery Method Room Air Positive well nourished and well developed General Appearance ED: well developed and NAD HEENT Reports TM's clear HEENT Narrative: Forehead, nose with bilateral periorbital ecchymosis. trauma and tenderness Nose: Negative for septum abnormal Tympanic Membrane ED: Yes TM's clear Eyes PERRL and EOMs intact bilaterally General Eye ED: Yes other Other Details: There is no subconjunctival hemorrhage. There is no step-off with palpation infraorbital rim, there is no hyperesthesia in Frable nerve and there is no evidence of entrapment with upward gaze. Neck full ROM Neck Narrative: There is no posterior midline neck pain. General: Negative for tenderness Resp normal respiratory effort and clear to auscultation bilaterally Cardio regular rhythm Rate: regular rate Extremity normal to inspection and full ROM General Extremety ED: Negative for deformity or edema General Extremity: Negative for deformity or edema Neuro oriented x3, CN's II-XII intact bilaterally, moves all extremities, no focal motor deficits and no sensory deficits noted Neuro Narrative: There is no dysmetria. Marce Coma Scale: document GCS findings Spontaneous Obeys Commands Oriented 15 Sensorium / Orientation: alert Plantar Reflex: Downgoing: left and Upgoing (positive Babinski): right (No history of TIA or CVA.) Psych mental status grossly normal and thought process normal Skin No no wounds Trauma: abrasion MDM MDM MDM Narrative Medical decision making narrative: With head trauma, amnesia and Babinski sign on the right will obtain CT to rule out traumatic injury i.e. subdural hematoma, epidural hematoma, traumatic subarachnoid hemorrhage or intraparenchymal contusion. Since patient has no C- spine tenderness full active range of motion imaging of the neck was not obtained per Nexus criteria. Patient is on no antithrombotic or anticoagulant. Her medication list was reviewed. History & Record Review Discussion w/independent historian: Family (At exit interview there were family members that were present that were not initially. They states she had loss of consciousness for 30 to 60 seconds.) Additional record(s) reviewed:: Prior outpatient record (March 2013 for occupational therapy no other records available) Radiography Diagnostic Testing: Clinical Impression(s) from Imaging Studies Brain CT 09/19/24 10:21 IMPRESSION: CHRONIC CHANGES. NO ACUTE FINDINGS. Reading Location: [facility]--1 Facial/Sinus 09/19/24 10:59 IMPRESSION: Nasal fracture. Soft tissue swelling of the nasal region. Reading Location: [facility]--1 Treatment and Re-Evaluation Narrative: Patient's questions were answered. She was tried to use bacitracin. She was told she does have a concussion Discharge Plan Triage Chief Complaint: Fall ED Provider: Timbo Yao Dx/Rx/DC Orders Clinical Impression: Concussion with loss of consciousness, Hyperlipidemia, Essential (primary) hypertension, Type 2 diabetes mellitus, Abrasion, face without infection, Closed fracture nasal bone Instructions: ED Abrasion, ED Concussion, ED Nose Fracture, with X-Ray Prescriptions: No Action metformin 750 mg tablet extended release 24 hr 750 mg PO QDAY hydrochlorothiazide 12.5 mg capsule 12.5 mg PO DAILY Patient Comments: take 1 capsule by mouth every morning losartan 100 mg tablet 100 mg PO DAILY 90 Days Qty: 90 3RF lisinopril 40 mg tablet 40 mg PO QDAY Qty: 90 3RF glimepiride 4 mg tablet 8 mg PO DAILY metoprolol tartrate 100 mg tablet 100 mg PO BID Qty: 180 3RF diltiazem HCl 180 mg capsule,extended release 24hr 180 mg PO QDAY Qty: 90 3RF Primary Care Provider: Ajay Sanchez Referrals: Ajay Sanchez MD [Primary Care Provider] - As Needed Matt Gavin MD [Med Staff - Active Staff] - 1-2 Weeks Activity Restrictions/Additional Instructions: 1. You will feel worse over the next 24 hours. 2. You will hurt in more places and you presently do. 3. You may have bruises where you did not initially. 4. Apply bacitracin ointment 2-3 times a day to your abrasions. 5. Apply ice 6-8 times where you are sore or have bruising. Print Language: Albanian Disposition Disposition: Home, Self Care
--- NOTE | 2024-09-19 10:21 | CT_ITS ---
PROCEDURE: BRAIN/HEAD WITHOUT CONTRAST 09/19/2024 REASON FOR EXAM: TRAUMA, AMNESIA TECHNIQUE: BRAIN/HEAD WITHOUT CONTRAST Coronal and Sagittal reconstruction series were provided. One or more dose reduction techniques were used (e.g., Automated exposure control, adjustment of the mA and/or kV according to patient size, use of iterative reconstruction technique. RADIATION DOSE SUMMARY: CTDlvol: 44.99 mGy DLP: 745.49 mGycm COMPARISON: None FINDINGS: Brain: Low density in the periventricular white matter suggests mild chronic small vessel ischemic changes. Findings suggestive of a tiny old lacune in the insular cortex of the left temporal lobe. CSF Spaces: Mild generalized cerebral atrophy Sinuses/Mastoids: Clear at visualized levels Bones: No fracture CT/Brain/Head without Contrast IMPRESSION: CHRONIC CHANGES. NO ACUTE FINDINGS. Reading Location: [place] [id number]
--- NOTE | 2024-09-19 10:59 | CT_ITS ---
PROCEDURE: SINUS/FACIAL BONE 09/19/2024 REASON FOR EXAM: INJURY TECHNIQUE: SINUS/FACIAL BONE Coronal and Sagittal reconstruction series were provided. One or more dose reduction techniques were used (e.g., Automated exposure control, adjustment of the mA and/or kV according to patient size, use of iterative reconstruction technique). RADIATION DOSE SUMMARY: CTDlvol: 29.38 mGy DLP: 613.57 mGycm COMPARISON: None FINDINGS: Frontal: Unremarkable Ethmoid: Unremarkable Sphenoid: Unremarkable Maxillary: Minimal mucosal thickening at the base of the right maxillary sinus. Turbinates: Velia bullosa of the middle turbinates bilaterally. Nasal Septum: Minimally depressed nasal fracture. Nasal soft tissue swelling. Mastoids/Middle Ears: Unremarkable. CT/Sinus/Facial Bone IMPRESSION: Nasal fracture. Soft tissue swelling of the nasal region. Reading Location: [place] [id number]
[2024-09-19 11:44] VITALS: BP 187/86; PULSE 84; RESP 16; TEMP 36.4; O2SAT 100
--- NOTE | 2024-09-19 11:48 | ED.RN ---
Pt. told she would go home and take her BP meds.
== END 2024-09-19 11:49 | disposition home or self-care (01) ==
PROVIDERS: Emergency Provider Emergency Medicine; PCP Family Medicine; Visit Provider Emergency Medicine
DX: S02.2XXA Fracture of nasal bones, initial encounter for closed fracture (principal); E11.9 Type 2 diabetes mellitus without complications; I10 Essential (primary) hypertension; W01.0XXA Fall on same level from slipping, tripping and stumbling without subsequent striking against object, initial encounter; E78.5 Hyperlipidemia, unspecified; S00.81XA Abrasion of other part of head, initial encounter; S06.0X9A Concussion with loss of consciousness of unspecified duration, initial encounter; Z79.84 Long term (current) use of oral hypoglycemic drugs; Z79.899 Other long term (current) drug therapy
CPT/HCPCS: 70450; 70486; 99282

== ENCOUNTER → 2024-09-25 | Outpatient (CLI) | payer MEDICARE, SELFPAY ==
[2024-09-25 13:40] LABS: AST(SGOT) 23 U/L (<=31); Alanine Aminotransfer ALT/SGPT 17 U/L (<=34); Albumin, Serum 4.0 g/dL (3.4-4.8); Alkaline Phosphatase 59 U/L (35-104); Anion Gap 14 (5-15); BUN 14 mg/dL (4-19); BUN/Creat Ratio 25.8 RATIO (10-20); Calcium,Total 9.5 mg/dL (7.6-11.0); Carbon Dioxide 22.0 mmol/L (21.0-32.0); Chloride 95 mmol/L (98-108); Cholesterol 172 mg/dL (<=200); Globulin 3.7 g/dL (2.2-4.2); Glucose 204 mg/dL (70-99); Low Density Lipoprotein Calc. 114 mg/dL; Potassium 3.8 mmol/L (3.3-5.1); Triglycerides 68 mg/dL; Very Low Density Lipoprotein 14 mg/dL (5-40); cholesterol:hdl ratio screen 3.83
--- OUTSIDE RECORDS SUMMARY | 2024-09-25 21:05 | XMS RPT_ITS | CCD ---
Author Organization [facility] Care Team Providers Care Pulp Grinder Name Role Phone Ajay Sanchez Attending Unavailable Ajay Sanchez Primary Care Unavailable Ajay Sanchez Primary Care Unavailable Ajay Sanchez Attending Unavailable Ajay Sanchez Primary Care Unavailable Ajay Sanchez Attending Unavailable Ajay Sanchez Primary Care Unavailable Ajay Sanchez Referring Unavailable Roof [employer], Hayden Ruiz Attending Unavailable Daniel PARRISH, Dr. Moss Primary Care Provider Dr. Timbo Yao MD Emergency Provider [phone] Allergies Allergy Classification Reported Allergen(s) Allergy Type Date of Onset Reaction(s) Facility (5 sources) amLODIPine Drug Allergy 1 ankle swelling [facility] (1 source) amLODIPine Drug Allergy 4 [facility] Repository Medications Current Medications Medication Drug Class(es) Dates Sig (Normalized) Sig (Original) 24 hr dilTIAZem hydrochloride 180 mg extended release oral capsule (20 sources) Calcium Channel Mc Start: 05-27-2017 End: 08-21-2024 take 1 capsule by mouth once daily Diltiazem Hcl 180 mg capsule,extended release 24hr Active 180 mg PO daily 90 3 August 21, 2024 3:44pm glimepiride 4 mg oral tablet (6 sources) Sulfonylurea Start: 09-16-2023 take 2 tablets by mouth once daily Glimepiride 4 mg tablet Active 8 mg PO DAILY September 16, 2023 12:00am Start: 06-07-2018 End: 09-16-2023 take 1 tablet by mouth once daily in the morning Glimepiride 2 mg tablet Discontinued 2 mg PO EVERY MORNING June 07, 2018 12:00am September 16, 2023 10:53am hydroCHLOROthiazide 12.5 mg oral capsule (5 sources) Thiazide Diuretic Start: 05-30-2019 take 1 capsule by mouth once daily Hydrochlorothiazide 12.5 mg capsule Active 12.5 mg PO DAILY May 30, 2019 12:00am losartan potassium 100 mg oral tablet (10 sources) Angiotensin 2 Receptor Mc Start: 06-07-2018 End: 05-30-2019 take 1 tablet by mouth once daily Losartan 100 mg tablet Active 100 mg PO DAILY 90 90 3 May 30, 2019 9:33am Start: 06-07-2018 End: 05-30-2019 Losartan 100 mg tablet Disco ntinued PO 30 30 0 June 07, 2018 12:00am May 30, 2019 9:34am 24 hr metFORMIN hydrochloride 750 mg extended release oral tablet (5 sources) Biguanide Start: 05-27-2017 take 1 tablet by mouth once daily Metformin 750 mg tablet extended release 24 hr Active 750 mg PO daily May 27, 2017 12:00am metoprolol tartrate 100 mg oral tablet (20 sources) beta-Adrenergic Mc Start: 05-27-2017 End: 05-10-2024 take 1 tablet by mouth twice daily Metoprolol Tartrate 100 mg tablet Active 100 mg PO TWICE A DAY 180 3 May 10, 2024 4:01pm Completed/Discontinued Medications Medication Drug Class(es) Dates Sig (Normalized) Sig (Original) amLODIPine 5 mg oral tablet (5 sources) Dihydropyridine Calcium Channel Mc Start: 9 End: 0 take 1 tablet by mouth once daily Amlodipine 5 mg tablet Discontinued 5 mg PO DAILY June 07, 2018 12:00am May 30, 2019 9:22am doxazosin 2 mg oral tablet (5 sources) alpha-Adrenergic Mc Start: 8 End: 8 take 1 tablet by mouth once daily Doxazosin 2 mg tablet Discontinued 2 mg PO daily May 27, 2017 12:00am June 01, 2017 2:09pm hydroCHLOROthiazide 25 mg / losartan potassium 100 mg oral tablet (10 sources) Thiazide Diuretic, Angiotensin 2 Receptor Mc Start: 8 End: 9 Losartan-Hydroch lorothiazide 100-25 mg tablet Discontinued 1 {tbl} PO daily 90 3 September 01, 2017 9:37am June 07, 2018 10:28am Start: 05-27-2017 End: 06-07-2018 take 1 tablet by mouth once daily Losartan-Hydrochlorothiazide Discontinue d 1 TABLET PO daily 90 September 01, 2017 8:37am June 07, 2018 9:28am lisinopril 40 mg oral tablet (20 sources) Angiotensin Converting Enzyme Inhibitor Start: 05-27-2017 End: 05-30-2019 take 1 tablet by mouth once daily Lisinopril 40 mg tablet Discontinued 40 mg PO daily 90 November 25, 2018 9:54am May 30, 2019 9:34am Problems Problem Classification Problem Date Documented Date Episodic/Chronic Conduction disorders (5 sources) 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; Translations: [Atrioventricular block, first degree] 05-31-2017 Chronic Diabetes mellitus with complications (2 sources) Type 2 diabetes mellitus with other circulatory complications; Translations: [Type 2 diabetes mellitus with hyperglycemia] Onset: 02-24-2023 Chronic Diabetes mellitus without complication (1 source) Type 2 diabetes mellitus; Translations: [Type 2 diabetes mellitus without complications] 09-16-2023 Chronic Disorders of lipid metabolism (5 sources) Hyperlipidemia; Translations: [Hyperlipidemia, unspecified] 06-01-2017 Chronic Essential hypertension (5 sources) Essential hypertension; Translations: [Essential (primary) hypertension] 05-27-2019 Chronic Fluid and electrolyte disorders (1 source) Hypo-osmolality and hyponatremia; Translations: [Hypo-osmolality and hyponatremia] Onset: 12-01-2023 Episodic Heart valve disorders (5 sources) Heart murmur; Translations: [Cardiac murmur, unspecified] 05-28-2020 Episodic Intracranial injury (1 source) Concussion with loss of consciousness; Translations: [Concussion with loss of consciousness of unspecified duration, initial encounter] 09-19-2024 Episodic Other aftercare (4 sources) Patient encounter status; Translations: [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] 05-27-2019 Episodic Other aftercare (1 source) Long-term current use of drug therapy; Translations: [Other prison (current) drug therapy] 05-27-2019 Episodic Skull and face fractures (1 source) Closed fracture of nasal bones; Translations: [Fracture of nasal bones, initial encounter for closed fracture] 09-19-2024 Episodic Superficial injury; contusion (1 source) Abrasion and/or friction burn of face without infection; Translations: [Abrasion of other part of head, initial encounter] 09-19-2024 Episodic Results Test Name Value Interpretation Reference Range Facility Thyroid Stim Hormone (TSH)on 11-09-2023 TSH 0.397 uIU/mL Normal 0.358-3.740 [facility] Comment on above: Order Comment: Order Date: 11/09/23 Order Info: 3016-3 - TSH Performed By: #### L 501.9520 #### [facility] [address] [place], [address] Basic Metabolic Profile (BMP )on 11-08-2023 BUN/CRE 22.8 RATIO High 10-20 [facility] Comment on above: Order Comment: Order Date: 11/08/23 Order Info: 06 - BMP Performed By: #### L 500.2500 #### [facility] [address] [place], [address] CA,Total 9.7 mg/dL Normal 8.5-10.1 [facility] Comment on above: Order Comment: Order Date: 11/08/23 Order Info: 06 - BMP Performed By: #### L 500.2500 #### [facility] [address] [place], [address] Chloride [Moles/Vol] 98 mmol/L Normal 98-107 [facility] Comment on above: Order Comment: Order Date: 11/08/23 Order Info: 06 - BMP Performed By: #### L 500.2500 #### [facility] [address] [place], [address] CO2 [Moles/Vol] 23.0 mmol/L Normal 21.0-32.0 [facility] Comment on above: Order Comment: Order Date: 11/08/23 Order Info: 06 - BMP Performed By: #### L 500.2500 #### [facility] [address] [place], [address] Creatinine [Mass/Vol] 0.79 mg/dL Normal 0.55-1.02 [facility] Comment on above: Order Comment: Order Date: 11/08/23 Order Info: 06 - Cinegif Result Comment: The validity of the calculated GFR GFRAA in patients over 70 years has not been determined. Clinical correlation is essential. Performed By: #### L 500.2500 #### [facility] [address] [place], [place], [address] EST GFR - AA 90 mL/min Normal >60 [facility] Comment on above: Order Comment: Order Date: 11/08/23 Order Info: 666-02 - BMP Result Comment: Afri can Faroese GFR Calc Performed By: #### L 500.2500 #### [facility] [address] [place], [address] GAP 9 Normal 5-15 [facility] Comment on above: Order Comment: Order Date: 11/08/23 Order Info: 06 - BMP Performed By: #### L 500.2500 #### [facility] [address] [place], [place], [address] (371 GFR/1.73 sq M.predicted among non-blacks MDRD (S/P/Bld) [Vol rate/Area] 74 mL/min/{1.73_m2} Normal >60 [facility] Comment on above: Order Comment: Order Date: 11/08/23 Order Info: 06 - BMP Result Comment: Non- GFR Calc Performed By: #### L 500.2500 #### [facility] [address] [place], [place], [address] ([address] Glucose [Mass/Vol] 247 mg/dL High 74-106 [facility] Comment on above: Order Comment: Order Date: 11/08/23 Order Info: 06 - BMP Result Comment: Gluc ose result greater than or equal to 200 mg/dL suggests DIABETES MELLITUS per A.D.A. criteria. Performed By: #### L 500.2500 #### [facility] [address] [place], [place], [address] Potassium [Moles/Vol] 4.1 mmol/L Normal 3.5-5.1 [facility] Comment on above: Order Comment: Order Date: 11/08/23 Order Info: 0667-1 - BMP Performed By: #### L 500.2500 #### [facility] [address] [place], [place], [address] Sodium [Moles/Vol] 130 mmol/L Low 136-145 [facility] Comment on above: Order Comment: Order Date: 11/08/23 Order Info: 0667-1 - BMP Performed By: #### L 500.2500 #### [facility] [address] [place], [place], [address] Urea nitrogen [Mass/Vol] 18 mg/dL Normal 7-18 [facility] Comment on above: Order Comment: Order Date: 11/08/23 Order Info: 0667-1 - BMP Performed By: #### L 500.2500 #### [facility] [address] [place], [place], [address] Cardiology Visit Reporton Cardiology Visit Report [facility] [address] [place], [place] [address] OFFICE VISIT Date of Service: 09/16/23 MR#: [id number] Acct: [id number] Name: JOHN GONZALES Rep #: [id number] : 1945 Provider: RACHEL gambino Age/Sex: 78/F [place] [facility] [place] Status: Signed [facility] History of Present Illness Details: JOHN GONZALES, is a 78 F who presents to the office today for a cardiovascular follow-up. She is a lady with a history of hypertension and white coat hypertension. She denies chest, arm, jaw, or neck discomfort. She denies palpitations. She states occasional bilateral lower extremity edema during hot weather. She denies claudication. She denies shortness of breath with activity, shortness of breath at rest, orthopnea, or PND. She denies chronic cough. She denies significant, sudden weight gain. She denies lightheadedness, dizziness, near-syncope, or syncope. She denies blood in urine, blood in stool, or epistaxis. He denies fever with chills. She denies myalgia. She denies fatigue. Her exercise level has remained stable. She states her home blood pressure has been better and fluctuates. 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 Is patient in pain?: No Allergies amlodipine Adverse Reaction (Verified 09/16/23 10:52) ankle swelling Medications ???Medication ???Instructions ???Recorded ???Confirmed ???Type metformin 750 mg tablet,extended 750 mg PO QDAY 05/27/17 09/16/23 History release 24 hr hydrochlorothiazide 12.5 mg capsule 12.5 mg PO DAILY 05/30/19 09/16/23 History lisinopril 40 mg tablet 40 mg PO QDAY #90 tabs 05/30/19 09/16/23 Rx losartan 100 mg tablet 100 mg PO DAILY 90 days #90 tabs 05/30/19 09/16/23 Rx metoprolol tartrate 100 mg tablet 100 mg PO BID #180 tabs 05/03/23 09/16/23 Rx diltiazem HCl 180 mg 180 mg PO QDAY #90 caps 09/13/23 09/16/23 Rx capsule,extended release 24 hr glimepiride 4 mg tablet 8 mg PO DAILY 09/16/23 09/16/23 History Ejection fraction %: 60 Have you fallen in the past year?: No PFSH Medical History Type 2 diabetes mellitus Essential (primary) hypertension Hyperlipidemia First degree atrioventricular block by electrocardiogram Encounter for long-term current use of high risk medication Carotid bruit Family History (Reviewed 09/16/23 @ 11:29 by Hayden H Roof [employer], [employer]-C) Other Adopted Social History (Reviewed 09/16/23 @ 11:29 by Hayden White [employer], [employer]-C) Smoking Status: Never smoker alcohol intake: current details: occasional substance use type: does not use ROS Const Const: Negative for fatigue, weakness, headache(s), frequent falls, difficulty sleeping or excessive sweating Eyes Eyes: Negative for loss of peripheral vision, transient loss of vision, blurry vision, double vision or tunnel vision ENT ENT: Negative for headache(s), dizziness, Nosebleed/epistaxis or balance problems Cardio Chest Pain: No Palpitations: No Edema: Bilateral (Occasionally in hot temperatures) Muscle aches with walking: None Resp Respiratory: Negative for SOB with activity, SOB at rest, SOB orthopnea SOB lying down, Cough, snoring or paroxysmal nocturnal dyspnea GI GI: Negative nausea, vomiting, heartburn or black,tarry stools : Negative for hematuria Musc Musc: Negative for muscle aches/ myalgia, muscle weakness, joint pain or balance problems Skin Skin: Negative non-healing lesions, rash or unusual bruising Neuro Neuro: Negative for dizziness, lightheadedness, near syncope, syncope, frequent falls, headache(s), weakness, blurry vision, double vision or lack of coordination Ray Hematologic/Lymphatic: Negative for easy bleeding or easy bruising Endo Endo: Negative for fatigue, excessive sweating or increased thirst/drinking Psych Psych: Negative for anxiety or depression Allergy Allergy/Immunology: Negative for hives and Negative for rash Cardiology Exam Const Appearance: cooperative, healthy appearing, comfortable and no acute distress Nutritional Appearance: well nourished and overweight Orientation: alert, awake and oriented x3 Head Head: normal to inspection Ears: hearing grossly normal bilaterally Nose: external nose normal Face and Sinus: face symmetric Mouth: moist mucous membranes Eyes General: appearance normal, both eyes and all related structures Eyelids: eyelids normal E (more content not included)... Normal [facility] Basic Metabolic Profile (BMP )on 09-07-2023 BUN/CRE 31.4 RATIO High 10-20 [facility] Comment on above: Order Comment: Order Date: 09/07/23 Order Info: 0667-1 - BMP Performed By: #### L 500.2847 #### [facility] [place] [address] [place], [address] CA,Total 9.7 mg/dL Normal 8.5-10.1 [facility] Comment on above: Order Comment: Order Date: 09/07/23 Order Info: 0667- - BMP Performed By: #### L 500.2500 #### [facility] [address] [place], [address] Chloride [Moles/Vol] 95 mmol/L Low 98-107 [facility] Comment on above: Order Comment: Order Date: 09/07/23 Order Info: 06 - BMP Performed By: #### L 500.2500 #### [facility] [address] [place], [address] CO2 [Moles/Vol] 21.0 mmol/L Normal 21.0-32.0 [facility] Comment on above: Order Comment: Order Date: 09/07/23 Order Info: 06 - BMP Performed By: #### L 500.2500 #### [facility] [address] [place], [address] Creatinine [Mass/Vol] 1.02 mg/dL Normal 0.55-1.02 [facility] Comment on above: Order Comment: Order Date: 09/07/23 Order Info: 0667- - BMP Result Comment: The validity of the calculated GFR GFRAA in patients over 70 years has not been determined. Clinical correlation is essential. Performed By: #### L 500.2500 #### [facility] [address] [place], [address] EST GFR - AA 67 mL/min Normal >60 [facility] Comment on above: Order Comment: Order Date: 09/07/23 Order Info: 0667- - BMP Result Comment: Afri can Faroese GFR Calc Performed By: #### L 500.2500 #### [facility] [address] [place], [address] GAP 8 Normal 5-15 [facility] Comment on above: Order Comment: Order Date: 09/07/23 Order Info: 666-02 - BMP Performed By: #### L 500.2500 #### [facility] [address] [place], [place], [address] GFR/1.73 sq M.predicted among non-blacks MDRD (S/P/Bld) [Vol rate/Area] 56 mL/min/{1.73_m2} Low >60 [facility] Comment on above: Order Comment: Order Date: 09/07/23 Order Info: 666-02 - BMP Result Comment: Non- GFR Calc Performed By: #### L 500.2500 #### [facility] [address] [place], [place], [id number] Glucose [Mass/Vol] 278 mg/dL High 74-106 [facility] Comment on above: Order Comment: Order Date: 09/07/23 Order Info: 666-02 - BMP Result Comment: Gluc ose result greater than or equal to 200 mg/dL suggests DIABETES MELLITUS per A.D.A. criteria. Performed By: #### L 500.2500 #### [facility] [address] [place], [place], [address] Potassium [Moles/Vol] 5.1 mmol/L Normal 3.5-5.1 [facility] Comment on above: Order Comment: Order Date: 09/07/23 Order Info: 666-02 - BMP Performed By: #### L 500.2500 #### [facility] [address] [place], [address] Sodium [Moles/Vol] 124 mmol/L Low 136-145 [facility] Comment on above: Order Comment: Order Date: 09/07/23 Order Info: 666-02 - BMP Performed By: #### L 500.2500 #### [facility] [address] [place], [place], [id number] (206 Urea nitrogen [Mass/Vol] 32 mg/dL High 7-18 [facility] Comment on above: Order Comment: Order Date: 09/07/23 Order Info: 67-1 - BMP Performed By: #### L 500.2500 #### [facility] [address] [place], [address] Basophil percentageOrdered B y: Iker Sanchez on 02-19-2023 Bilirubin [Mass/Vol] 0.50 mg/dL 0.20-1.00 [facility] Comment on above: For patients on eltr ombopag therapy, use of Dimension [place] TBIL is not recommended. Chloride [Moles/Vol] 103 mmol/L 98-107 [facility] Cholesterol [Mass/Vol] 185 mg/dL <200 [facility] Comment on above: <200 mg/dL Desirable 200-240 mg/dL Borderline >240 mg/dL High Risk Glucose [Mass/Vol] 272 mg/dL 74-106 [facility] Comment on above: Glucose result great er than or equal to 200 mg/dLsuggests DIABETES MELLITUS per A.D.A. criteria. Potassium [Moles/Vol] 3.8 mmol/L 3.5-5.1 [facility] Comment on above: Slight Hemolysis, Re sult may be falsely increased. Protein [Mass/Vol] 8.2 g/dL 6.4-8.2 [facility] Sodium [Moles/Vol] 135 mmol/L 136-145 [facility] Triglyceride [Mass/Vol] 145 mg/dL <199 [facility] Comment on above: The drugs N-Acetylcy steine and Metamizole may falsely depress this assay.Serum Triglycerides Reference Interval Normal <150 mg/dL Borderline high 150 - 199 mg/dL High 200 - 499 mg/dL Very High > or = 500 mg/dL Comprehensive Metabolic Prof ilon 02-19-2023 Albumin [Mass/Vol] 3.7 g/dL Normal 3.2-5.0 [facility] Comment on above: Order Comment: Order Date: 08/31/22 Order Info: 0786-1 - CMP Order Info: [id number] - LIPID Order Info: 3016-3 - TSH Performed By: #### L 500.4100, L506.1000, L501.9520, L500.4050 #### [facility] [address] [place], [place], [address] Albumin/Globulin [Mass ratio] 0.8 {ratio} Low 0.9-2.4 [facility] Comment on above: Order Comment: Order Date: 08/31/22 Order Info: 785-02 - CMP Order Info: [id number] - LIPID Order Info: 3015-04 - TSH Performed By: #### L 500.4100, L506.1000, L501.9520, L500.4050 #### [facility] [address] [place], [address] ALK P 82 U/L Normal 45-117 [facility] Comment on above: Order Comment: Order Date: 08/31/22 Order Info: 785-02 - CMP Order Info: - LIPID Order Info: [id number] - TSH Performed By: #### L 500.4100, L506.1000, L501.9520, L500.4050 #### [facility] [address] [place], [address] ALT [Catalytic activity/Vol] 26 U/L Normal 13-56 [facility] Comment on above: Order Comment: Order Date: 08/31/22 Order Info: 785-02 - CMP Order Info: [id number] - LIPID Order Info: 3015-04 - TSH Performed By: #### L 500.4100, L506.1000, L501.9520, L500.4050 #### [facility] [address] [place], [address] AST [Catalytic activity/Vol] 20 U/L Normal 15-37 [facility] Comment on above: Order Comment: Order Date: 08/31/22 Order Info: 785-02 - CMP Order Info: [id number] - LIPID Order Info: [id number] - TSH Result Comment: Slig ht Hemolysis, Result may be falsely increased. Performed By: #### L 500.4100, L506.1000, L501.9520, L500.4050 #### [facility] [address] [place], [address] Bilirubin [Mass/Vol] 0.50 mg/dL Normal 0.20-1.00 [facility] Comment on above: Order Comment: Order Date: 08/31/22 Order Info: 785-02 - CMP Order Info: [id number] - LIPID Order Info: 3015-3 - TSH Result Comment: For patients on eltrombopag therapy, use of Dimension [place] TBIL is not recommended. Performed By: #### L 500.4100, L506.1000, L501.9520, L500.4050 #### [facility] [address] [place], [place], [address] BUN/CRE 28.4 RATIO High 10-20 [facility] Comment on above: Order Comment: Order Date: 08/31/22 Order Info: 785-02 - CMP Order Info: - LIPID Order Info: 3 - TSH Performed By: #### L 500.4100, L506.1000, L501.9520, L500.4050 #### [facility] [address] [place], [address] CA,Total 9.3 mg/dL Normal 8.5-10.1 [facility] Comment on above: Order Comment: Order Date: 08/31/22 Order Info: 07 - CMP Order Info: - LIPID Order Info: 3 - TSH Performed By: #### L 500.4100, L506.1000, L501.9520, L500.4050 #### [facility] [address] [place], [address] Chloride [Moles/Vol] 103 mmol/L Normal 98-107 [facility] Comment on above: Order Comment: Order Date: 08/31/22 Order Info: 0786- - CMP Order Info: - LIPID Order Info: 3 - TSH Performed By: #### L 500.4100, L506.1000, L501.9520, L500.4050 #### [facility] [address] [place], [address] CO2 [Moles/Vol] 24.0 mmol/L Normal 21.0-32.0 [facility] Comment on above: Order Comment: Order Date: 08/31/22 Order Info: 785- - CMP Order Info: - LIPID Order Info: [id number] - TSH Performed By: #### L 500.4100, L506.1000, L501.9520, L500.4050 #### [facility] [address] [place], [address] Creatinine [Mass/Vol] 0.70 mg/dL Normal 0.55-1.02 [facility] Comment on above: Order Comment: Order Date: 08/31/22 Order Info: 785-02 - CMP Order Info: - LIPID Order Info: [id number] - TSH Result Comment: The validity of the calculated GFR GFRAA in patients over 70 years has not been determined. Clinical correlation is essential. Performed By: #### L 500.4100, L506.1000, L501.9520, L500.4050 #### [facility] [address] [place], [address] EST GFR - AA 103 mL/min Normal >60 [facility] Comment on above: Order Comment: Order Date: 08/31/22 Order Info: 785-02 - CMP Order Info: - LIPID Order Info: [id number] - TSH Result Comment: Afri can Faroese GFR Calc Performed By: #### L 500.4100, L506.1000, L501.9520, L500.4050 #### [facility] [address] [place], [address] GAP 8 Normal 5-15 [facility] Comment on above: Order Comment: Order Date: 08/31/22 Order Info: 785- - CMP Order Info: - LIPID Order Info: [id number] - TSH Performed By: #### L 500.4100, L506.1000, L501.9520, L500.4050 #### [facility] [address] [place], [address] GFR/1.73 sq M.predicted among non-blacks MDRD (S/P/Bld) [Vol rate/Area] 85 mL/min/{1.73_m2} Normal >60 [facility] Comment on above: Order Comment: Order Date: 08/31/22 Order Info: 785-1 - CMP Order Info: [id number] - LIPID Order Info: [id number] - TSH Result Comment: Non- GFR Calc Performed By: #### L 500.4100, L506.1000, L501.9520, L500.4050 #### [facility] [address] [place], [address] Globulin (S) [Mass/Vol] 4.5 g/dL High 2.2-4.2 [facility] Comment on above: Order Comment: Order Date: 08/31/22 Order Info: 07 - CMP Order Info: [id number] - LIPID Order Info: 3 - TSH Performed By: #### L 500.4100, L506.1000, L501.9520, L500.4050 #### [facility] [address] [place], [address] Glucose [Mass/Vol] 272 mg/dL High 74-106 [facility] Comment on above: Order Comment: Order Date: 08/31/22 Order Info: [id number] - CMP Order Info: [id number] - LIPID Order Info: [id number] - TSH Result Comment: Gluc ose result greater than or equal to 200 mg/dL suggests DIABETES MELLITUS per A.D.A. criteria. Performed By: #### L 500.4100, L506.1000, L501.9520, L500.4050 #### [facility] [address] [place], [address] Potassium [Moles/Vol] 3.8 mmol/L Normal 3.5-5.1 [facility] Comment on above: Order Comment: Order Date: 08/31/22 Order Info: [id number] - CMP Order Info: - LIPID Order Info: [id number] - TSH Result Comment: Slig ht Hemolysis, Result may be falsely increased. Performed By: #### L 500.4100, L506.1000, L501.9520, L500.4050 #### [facility] [address] [place], [address] Sodium [Moles/Vol] 135 mmol/L Low 136-145 [facility] Comment on above: Order Comment: Order Date: 08/31/22 Order Info: [id number] - CMP Order Info: - LIPID Order Info: [id number] - TSH Performed By: #### L 500.4100, L506.1000, L501.9520, L500.4050 #### [facility] [address] [place], [place], [id number] T PROT 8.2 g/dL Normal 6.4-8.2 [facility] Comment on above: Order Comment: Order Date: 08/31/22 Order Info: [id number] - CMP Order Info: - LIPID Order Info: [id number] - TSH Performed By: #### L 500.4100, L506.1000, L501.9520, L500.4050 #### [facility] [address] [place], [address] Urea nitrogen [Mass/Vol] 20 mg/dL High 7-18 [facility] Comment on above: Order Comment: Order Date: 08/31/22 Order Info: [id number] - CMP Order Info: - LIPID Order Info: 3 - TSH Performed By: #### L 500.4100, L506.1000, L501.9520, L500.4050 #### [facility] [address] [place], [address] Laboratory - Chemistry and C hemistry - challengeOrdered By: Iker Sanchez on 02-19-2023 ALP [Catalytic activity/Vol] 82 U/L 45-117 [facility] ALT [Catalytic activity/Vol] 26 U/L 13-56 [facility] CO2 [Moles/Vol] 24.0 mmol/L 21.0-32.0 [facility] Globulin (S) [Mass/Vol] 4.5 g/dL 2.2-4.2 [facility] Urea nitrogen/Creatinine [Mass ratio] 28.4 mg/mg 10-20 [facility] Lipid Profileon 02-19-2023 Cholesterol [Mass/Vol] 185 mg/dL Normal 200 [facility] Comment on above: Order Comment: Order Date: 08/31/22 Order Info: [id number] - CMP Order Info: [id number] - LIPID Order Info: [id number] - TSH Result Comment: <200 mg/dL Desirable 200-240 mg/dL Borderline >240 mg/dL High Risk Performed By: #### L 500.4100, L506.1000, L501.9520, L500.4050 #### [facility] [address] [place], [address] Cholesterol in HDL [Mass/Vol] 45 mg/dL Normal [facility] Comment on above: Order Comment: Order Date: 08/31/22 Order Info: [id number] - CMP Order Info: [id number] - LIPID Order Info: [id number] - TSH Result Comment: The drugs N-Acetylcysteine and Metamizole may falsely depress this assay. Reference Range HDL <40 mg/dL Low HDL Cholesterol HDL >or= 60 mg/dL High HDL Cholesterol Performed By: #### L 500.4100, L506.1000, L501.9520, L500.4050 #### [facility] [address] [place], [address] Cholesterol in LDL [Mass/Vol] 111 mg/dL Normal 0-130 [facility] Comment on above: Order Comment: Order Date: 08/31/22 Order Info: [id number] - CMP Order Info: [id number] - LIPID Order Info: [id number] - TSH Performed By: #### L 500.4100, L506.1000, L501.9520, L500.4050 #### [facility] [address] [place], [place], [id number] Cholesterol in VLDL [Mass/Vol] 29 mg/dL Normal 5-40 [facility] Comment on above: Order Comment: Order Date: 08/31/22 Order Info: [id number] - CMP Order Info: [id number] - LIPID Order Info: 3 - TSH Performed By: #### L 500.4100, L506.1000, L501.9520, L500.4050 #### [facility] [address] [place], [place], [id number] Triglyceride [Mass/Vol] 145 mg/dL Normal [facility] Comment on above: Order Comment: Order Date: 08/31/22 Order Info: [id number] - CMP Order Info: [id number] - LIPID Order Info: 3 - TSH Result Comment: The drugs N-Acetylcysteine and Metamizole may falsely depress this assay. Serum Triglycerides Reference Interval Normal <150 mg/dL Borderline high 150 - 199 mg/dL High 200 - 499 mg/dL Very High > or = 500 mg/dL Performed By: #### L 500.4100, L506.1000, L501.9520, L500.4050 #### [facility] [address] [place], [place], [address] No Panel InformationOrdered By: Iker Sanchez on 02-19-2023 Estimated GFR (MDRD) Amer 103 mL/min >60 [facility] Comment on above: GFR Calc Estimated GFR (MDRD) Non-Af Amer 85 mL/min >60 [facility] Comment on above: Non- GFR Calc Thyroid Stimulating Hormone (TSH) 0.75 uIU/mL 0.358-3.74 [facility] Vitamin D 25-Hydroxy 54.0 ng/mL [facility] Comment on above: Vitamin D 25(OH) Sta tus Range Deficiency <20 ng/mL (50nmol/L) Insufficiency 20 - 30 ng/mL (50 - 75 nmol/L) Sufficiency 30 - 100 ng/mL (75 - 250 nmol/L) Toxicity >100 ng/mL (>250 nmol/L) Serum or plasma albumin kaila urement (mass/volume)Ordered By: Iker Sanchez on 02-19-2023 Albumin [Mass/Vol] 3.7 g/dL 3.2-5.0 [facility] Serum or plasma albumin/glob ulin mass ratioOrdered By: Iker Sanchez on 02-19-2023 Albumin/Globulin [Mass ratio] 0.8 {ratio} 0.9-2.4 [facility] Serum or plasma calcium kaila urement (mass/volume)Ordered By: Iker Sanchez on 02-19-2023 Calcium [Mass/Vol] 9.3 mg/dL 8.5-10.1 [facility] Serum or plasma cholesterol in HDL measurement (mass/volume)Ordered By: Iker Sanchez on 02-19-2023 Cholesterol in HDL [Mass/Vol] 45 mg/dL >40 [facility] Comment on above: The drugs N-Acetylcy steine and Metamizole may falsely depress this assay. Reference Range HDL <40 mg/dL Low HDL Cholesterol HDL >or= 60 mg/dL High HDL Cholesterol Serum or plasma cholesterol in VLDL measurement (mass/volume)Ordered By: Iker Sanchez on 02-19-2023 Cholesterol in VLDL [Mass/Vol] 29 mg/dL 5-40 [facility] Serum or plasma creatinine m easurement (mass/volume)Ordered By: Iker Sanchez on 02-19-2023 Creatinine [Mass/Vol] 0.70 mg/dL 0.55-1.02 [facility] Comment on above: The validity of the calculated GFR & GFRAA in patients over 70 years has not been determined. Clinical correlation is essential. Serum or plasma low density lipoprotein (LDL) cholesterol measurement (mass/volume)Ordered By: Iker Sanchez on 02-19-2023 Cholesterol in LDL [Mass/Vol] 111 mg/dL 0-130 [facility] Serum or plasma urea nitroge n measurement (mass/volume)Ordered By: Iker Sanchez on 02-19-2023 Urea nitrogen [Mass/Vol] 20 mg/dL 7-18 [facility] Thin prep Papanicolaou smear with manual screeningOrdered By: Iker Sanchez on 02-19-2023 Thin prep Papanicolaou smear with manual screening 20 U/L 15 [facility] Comment on above: Slight Hemolysis, Re sult may be falsely increased. Thin prep Papanicolaou smear with manual screening 8 5- [facility] Thyroid Stim Hormone (TSH)on 02-19-2023 TSH 0.75 uIU/mL Normal 0.358-3.74 [facility] Comment on above: Order Comment: Order Date: 08/31/22 Order Info: [id number] - CMP Order Info: [id number] - LIPID Order Info: [id number] - TSH Performed By: #### L 500.4100, L506.1000, L501.9520, L500.4050 #### [facility] [address] [place], [place], [id number] Vitamin D,25 Hydroxyon 02-19 Vitamin D 25-OH 54.0 ng/mL Normal [facility] Comment on above: Order Comment: Order Date: 08/31/22 Order Info: [id number] - VITD25 Result Comment: Shayy min D 25(OH) Status Range Deficiency <20 ng/mL (50nmol/L) Insufficiency 20 - 30 ng/mL (50 - 75 nmol/L) Sufficiency 30 - 100 ng/mL (75 - 250 nmol/L) Toxicity >100 ng/mL (>250 nmol/L) Performed By: #### L 500.4100, L506.1000, L501.9520, L500.4050 #### [facility] [address] [place], [place], [address] Laboratory - Chemistry and C hemistry - challengeOrdered By: Dr. Sanchez on 06-04-2022 Cobalamin (Vitamin B12) [Mass/Vol] 494 pg/mL 211-911 [facility] 24 hour urine alpha 2 globul in/total protein ratio by electrophoresis (mass fraction)on 08-26-2021 Alpha 2 globulin Elph (24H U) [Mass fraction] 4.6 % . [facility] Work Phone: 24 hour urine beta globulin/ total protein ratio by electrophoresis (mass fraction)on 08-26-2021 Beta globulin Elph (24H U) [Mass fraction] 11.7 % . [facility] Work Phone: 24 hour urine gamma globulin /total protein ratio by electrophoresis (mass fraction)on 08-26-2021 Gamma globulin Elph (24H U) [Mass fraction] 8.9 % . [facility] Work Phone: Laboratory - Chemistry and C hemistry - challengeon 08-26-2021 Albumin [Mass/Vol] 3.6 g/dL 2.9-4.4 [facility] Work Phone: [phone] No Panel Informationon 08-26 Addendum Document Comment . [facility] Work Phone: Comment on above: The SPE pattern demo nstrates an increase in the betafraction. This may be due to increases in transferrin, beta-lipoprotein (hypercholesterolemia), or immunoglobulins, asseen in polyclonal or monoclonal gammopathies. Ifclinically indicated, the presence of a monoclonalgammopathy may be confirmed by immunofixation or serum freelight chain quantitation. Dckeg-0-Vuwabnmep 0.2 g/dL 0.0-0.4 [facility] Work Phone: [phone] Kwvgi-9-Xqfhtmupm 1.0 g/dL 0.4-1.0 [facility] Work Phone: [phone] Globulins 1.5 g/dL 0.4-1.8 [facility] Work Phone: [phone] Protein Fractions Elph [Inte rp]on 08-26-2021 Protein Fractions [Interp] Comment . [facility] Work Phone: Comment on above: Protein electrophore sis scan will follow via computer,mail, or maintenance shop clerk delivery. Serum albumin to globulin ra jillian by protein electrophoresison 08-26-2021 Albumin/Globulin Elph [Mass ratio] 0.9 0.7-1.7 [facility] Work Phone: [phone] Serum globulin measurement ( mass/volume)on 08-26-2021 Globulin (S) [Mass/Vol] 4.1 g/dL 2.2-3.9 [facility] Work Phone: Serum or plasma beta globuli n measurement by electrophoresis (mass/volume)on 08-26-2021 Beta globulin Elph [Mass/Vol] 1.4 g/dL 0.7-1.3 [facility] Work Phone: Thin prep Papanicolaou smear with manual screeningon 08-26-2021 Thin prep Papanicolaou smear with manual screening See comment [facility] Work Phone: Comment on above: NOT OBSERVED Total protein bloodon 2021 Protein [Mass/Vol] 7.7 g/dL 6.0-8.5 [facility] Work Phone: Urine albumin/total protein mass ratio by electrophoresison 08-26-2021 Albumin Elph (U) [Mass fraction] 70.1 % . [facility] Work Phone: [phone] Urine alpha 1 globulin/total protein ratio by electrophoresis (mass fraction)on 08-26-2021 Alpha 1 globulin Elph (U) [Mass fraction] 4.7 % . [facility] Work Phone: [phone] Urine monoclonal protein/tot al protein mass ratio by electrophoresison 08-26-2021 Protein.monoclonal Elph (U) [Mass fraction] See comment [facility] Work Phone: Comment on above: NOT OBSERVED Urine protein measurement (m ass/volume)on 08-26-2021 Protein (U) [Mass/Vol] 124.9 mg/dL Not Estab. [facility] Work Phone: Basophil percentageon 2021 Bilirubin [Mass/Vol] 0.40 mg/dL 0.20-1.00 [facility] Work Phone: Comment on above: For patients on eltr ombopag therapy, use of Dimension [place] TBIL is not recommended. Chloride [Moles/Vol] 100 mmol/L 98-107 [facility] Work Phone: Cholesterol [Mass/Vol] 177 mg/dL <200 [facility] Work Phone: [phone] Comment on above: <200 mg/dL Desirable 200-240 mg/dL Borderline >240 mg/dL High Risk Glucose [Mass/Vol] 242 mg/dL 74-106 [facility] Work Phone: Comment on above: Glucose result great er than or equal to 200 mg/dLsuggests DIABETES MELLITUS per A.D.A. criteria. Potassium [Moles/Vol] 4.0 mmol/L 3.5-5.1 [facility] Work Phone: Protein [Mass/Vol] 7.8 g/dL 6.4-8.2 [facility] Work Phone: [phone] Sodium [Moles/Vol] 132 mmol/L 136-145 [facility] Work Phone: [phone] Triglyceride [Mass/Vol] 128 mg/dL <199 [facility] Work Phone: [phone] Comment on above: The drugs N-Acetylcy steine and Metamizole may falsely depress this assay.Serum Triglycerides Reference Interval Normal <150 mg/dL Borderline high 150 - 199 mg/dL High 200 - 499 mg/dL Very High > or = 500 mg/dL Laboratory - Chemistry and C hemistry - challengeon 05-22-2021 ALP [Catalytic activity/Vol] 82 U/L 45-117 [facility] Work Phone: ALT [Catalytic activity/Vol] 26 U/L 13-56 [facility] Work Phone: [phone] CO2 [Moles/Vol] 25.0 mmol/L 21.0-32.0 [facility] Work Phone: [phone] Globulin (S) [Mass/Vol] 4.3 g/dL 2.2-4.2 [facility] Work Phone: [phone] Urea nitrogen/Creatinine [Mass ratio] 27.0 mg/mg 10-20 [facility] Work Phone: No Panel Informationon 05-22 Estimated GFR (MDRD) Amer 118 mL/min >60 [facility] Work Phone: Comment on above: GFR Calc Estimated GFR (MDRD) Non-Af Amer 98 mL/min >60 [facility] Work Phone: Comment on above: Non- GFR Calc Serum or plasma albumin kaila urement (mass/volume)on 05-22-2021 Albumin [Mass/Vol] 3.5 g/dL 3.2-5.0 [facility] Work Phone: Serum or plasma albumin/glob ulin mass ratioon 05-22-2021 Albumin/Globulin [Mass ratio] 0.8 {ratio} 0.9-2.4 [facility] Work Phone: Serum or plasma calcium kaila urement (mass/volume)on 05-22-2021 Calcium [Mass/Vol] 9.0 mg/dL 8.5-10.1 [facility] Work Phone: Serum or plasma cholesterol in HDL measurement (mass/volume)on 05-22-2021 Cholesterol in HDL [Mass/Vol] 44 mg/dL >40 [facility] Work Phone: Comment on above: The drugs N-Acetylcy steine and Metamizole may falsely depress this assay. Reference Range HDL <40 mg/dL Low HDL Cholesterol HDL >or= 60 mg/dL High HDL Cholesterol Serum or plasma cholesterol in VLDL measurement (mass/volume)on 05-22-2021 Cholesterol in VLDL [Mass/Vol] 26 mg/dL 5-40 [facility] Work Phone: Serum or plasma creatinine m easurement (mass/volume)on 05-22-2021 Creatinine [Mass/Vol] 0.63 mg/dL 0.55-1.02 [facility] Work Phone: Comment on above: The validity of the calculated GFR & GFRAA in patients over 70 years has not been determined. Clinical correlation is essential. Serum or plasma low density lipoprotein (LDL) cholesterol measurement (mass/volume)on 05-22-2021 Cholesterol in LDL [Mass/Vol] 107 mg/dL 0-130 [facility] Work Phone: Serum or plasma urea nitroge n measurement (mass/volume)on 05-22-2021 Urea nitrogen [Mass/Vol] 17 mg/dL 7-18 [facility] Work Phone: Thin prep Papanicolaou smear with manual screeningon 05-22-2021 Thin prep Papanicolaou smear with manual screening 18 U/L 15-37 [facility] Work Phone: Thin prep Papanicolaou smear with manual screening 7 5-15 [facility] Work Phone: Vital Signs Date Time Vital Sign Value Performing Clinician Faci lity 09-19-2024 11:44-0400 Body temperature 97.6 [degF] Dr. Ajay Sanchez MD Work Phone: [facility] 09-19-2024 11:44-0400 Diastolic blood pressure 86 mm[Hg] Dr. Ajay Sanchez MD Work Phone: [facility] 09-19-2024 11:44-0400 Heart rate 84 /min Dr. Ajay Sanchez MD Work Phone: [facility] 09-19-2024 11:44-0400 Respiratory rate 16 /min Dr. Ajay Sanchez MD Work Phone: [facility] 09-19-2024 11:44-0400 SaO2% (BldA) [Mass fraction] 100 % Dr. Ajay Sanchez MD Work Phone: [facility] 09-19-2024 11:44-0400 Systolic blood pressure 187 mm[Hg] Dr. Ajay Sanchez MD Work Phone: [facility] 09-19-2024 10:07-0400 Body height 154.[address] Ajay Sanchez MD Work Phone: [facility] 09-19-2024 10:07-0400 Body mass index (BMI) [Ratio] 28.8 kg/m2 Dr. Ajay Sanchez MD Work Phone: [facility] 09-19-2024 10:07-0400 Body weight 69.[address] Ajay Sanchez MD Work Phone: [facility] Encounters Encounter Date Encounter Type Care Provider Facility Start: 09-19-2024 End: 09-19-2024 Emergency department patient visit Dr. Ajay Sanchez MD Work Phone: -Emergency Department Work Phone: Start: 11-08-2023 End: [facility] Start: 09-16-2023 End: 09-16-2023 ambulatory [facility] [place] [place] Start: 09-07-2023 End: 09-07-2023 ambulatory [facility] Facility:[facility] Start: 02-19-2023 End: 02-19-2023 ambulatory [facility] Work Phone: Start: 02-19-2023 End: 02-19-2023 Patient encounter procedure [facility] Start: 02-19-2023 End: 02-19-2023 ambulatory [facility] Facility:[facility] Start: 06-04-2022 End: 06-04-2022 ambulatory [facility] Work Phone: Start: 06-04-2022 End: 06-04-2022 Patient encounter procedure [facility] Start: 08-26-2021 End: 08-26-2021 Patient encounter procedure [facility] Start: 05-22-2021 End: 05-22-2021 Patient encounter procedure [facility] Procedures Date Procedure Procedure Detail Performing Clinician Start: 09-19-[address] Adarsh Sanchez MD Work Phone: Start: 09-19-2024 CT of head without contrast Dr. Ajay Sanchez MD Work Phone: Plan of Treatment Date Care Activity Detail Author Start: 09-19-2024 [facility] Patient Education ED Abrasion ED Concussion ED Nose Fracture, with X-Ray [facility] Work Phone: Payers Date Payer Category Payer Self-pay [id number] 2009 Medicare [id number] Unknown [id number] [id number] [id number] Unknown [id number] 2.16.8 [id number] Unknown [id number] 2.16.8 [id number] Unknown [id number] 2.16.8 [id number] Social History Date Type Detail Facility Start: 05-28-2020 End: 09-15-2022 Tobacco smoking status NHIS Unknown if ever smoked [facility] Start: 1945 Sex Assigned At Female [facility] Start: 09-19-2024 Tobacco smoking stat us NHIS Never smoked tobacco (finding) [facility] Discharge summary 09-19-2024 Note Date & Type Note Facility 09-19-2024 Discharge summary [facility] Radiology Diagnostic study note 09-19-2024 Note Date & Type Note Facility 09-19-2024 Radiology Diagnostic study note [facility] Imaging Services [address] [place] [address] Sinus/Facial Bone MR#: [id number] Acct: [id number] Name: JOHN GONZALES Rep #: [id number] : 1945 F 79 From: Frandy Delvalle MD PCP: Dr. Ajay Sanchez MD Status: PRE ER Study:Sinus/Facial Bone Date of Exam: Exam# [id number] Ordering Dr: Marline Yao MD PROCEDURE: SINUS/FACIAL BONE 09/19/2024 REASON FOR EXAM: INJURY TECHNIQUE: SINUS/FACIAL BONE Coronal and Sagittal reconstruction series were provided. One or more dose reduction techniques were used (e.g., Automated exposure control, adjustment of the mA and/or kV according to patient size, use of iterative reconstruction technique). RADIATION DOSE SUMMARY: CTDlvol: 29.38 mGy DLP: 613.57 mGycm COMPARISON: None FINDINGS: Frontal: Unremarkable Ethmoid: Unremarkable Sphenoid: Unremarkable Maxillary: Minimal mucosal thickening at the base of the right maxillary sinus. Turbinates: Velia bullosa of the middle turbinates bilaterally. Nasal Septum: Minimally depressed nasal fracture. Nasal soft tissue swelling. Mastoids/Middle Ears: Unremarkable. CT/Sinus/Facial Bone IMPRESSION: Nasal fracture. Soft tissue swelling of the nasal region. Reading Location: [place] [address] CC: Dr. Ajay Sanchez MD; Dr. Timbo Yao MD ~ [employer]: Signed [facility] Radiology Diagnostic study note 09-19-2024 Note Date & Type Note Facility 09-19-2024 Radiology Diagnostic study note [facility] Imaging Services [address] [place] [address] Brain/Head without Contrast MR#: [id number] Acct: [id number] Name: JOHN GONZALES Rep #: [id number] : 1945 F 79 From: Frandy Delvalle MD PCP: Dr. Ajay Sanchez MD Status: PRE ER Study:Brain/Head without Contrast Date of Exa m: 09/19/24 Exam# [id number] Ordering Dr: Marline Yao MD PROCEDURE: BRAIN/HEAD WITHOUT CONTRAST 09/19/2024 REASON FOR EXAM: TRAUMA, AMNESIA TECHNIQUE: BRAIN/HEAD WITHOUT CONTRAST Coronal and Sagittal reconstruction series were provided. One or more dose reduction techniques were used (e.g., Automated exposure control, adjustment of the mA and/or kV according to patient size, use of iterative reconstruction technique. RADIATION DOSE SUMMARY: CTDlvol: 44.99 mGy DLP: 745.49 mGycm COMPARISON: None FINDINGS: Brain: Low density in the periventricular white matter suggests mild chronic small vessel ischemic changes. Findings suggestive of a tiny old lacune in the insular cortex of the left temporal lobe. CSF Spaces: Mild generalized cerebral atrophy Sinuses/Mastoids: Clear at visualized levels Bones: No fracture CT/Brain/Head without Contrast IMPRESSION: CHRONIC CHANGES. NO ACUTE FINDINGS. Reading Location: [place] [address] CC: Dr. Ajay Sanchez MD; Dr. Timbo Yao MD ~ [employer] [place] [employer]: Signed [facility] Discharge instructions 09-19-2024 Note Date & Type Note Facility 09-19-2024 Hospital Discharg e instructions Additional Instructions 1. You will feel worse over the next 24 hours. 2. You will hurt in more places and you presently do. 3. You may have bruises where you did not initially. 4. Apply bacitracin ointment 2-3 times a day to your abrasions. 5. Apply ice 6-8 times where you are sore or have bruising. [facility] Work Phone: Discharge summary Note Date & Type Note Facility Discharge summary Note Date/Time September 19, 2024 11:37am [facility] Medical Records Department [address] [place] [address] Emergency Department Summary 09/19/24 MR#: [id number] Acct: [id number] Name: JOHN GONZALES Rep #:[id number] : 1945 79 From: Timbo Yao MD PCP: Dr. Ajay Sanchez MD Status :REG ER Location: ED HPI History of Present Illness Chief Complaint: Fall Detail of Chief Complaint: Trauma to forehead, face and nose Informant: patient Onset/Context/Timing Onset: Hours Mechanism/Context: Blunt Injury and Fall Location of pain/injuries: - (Forehead, Dylan orbital bilateral and nose) Quality of Pain: Dull Current Severity: Mild Maximum Severity: Mild Worsened by: Nothing Relieved by: Nothing Associated Symptoms Associated Symptoms: Positive for Amnesia; Negative for Parasthesias, Weakness, Loss of function, Inability to ambulate or Loss of consciousness Narrative Narrative: Patient is 79-year-old woman. Patient apparently tripped falling forward. She did not break her fall based on no injury to her fingers. She does not recall. She does complain of facial/head pain. She denies double vision blurred vision loss of vision. Denies change in her hearing. She denies malalignment of her teeth. She denies neck pain. She denies paresthesia, anesthesia or motor weakness. She denies chest pain or shortness of breath. Prior similar symptoms: No Recent Illness/[facility]ospitalization: [facility] Medical History Type 2 diabetes mellitus Essential (primary) hypertension Hyperlipidemia First degree atrioventricular block by electrocardiogram Encounter for long-term current use of high risk medication Carotid bruit Home Medications ?Medication ?Instructions ?Recorded ?Last Taken ?Type metformin 750 mg tablet,extended 750 mg PO QDAY Unknown History release 24 hr hydrochlorothiazide 12.5 mg capsule 12.5 mg PO DAILY 0 05/30/19 Unknown History lisinopril 40 mg tablet 40 mg PO QDAY #90 tabs 05/29 Unknown Rx losartan 100 mg tablet 100 mg PO DAILY 90 days #90 tabs 05/30/19 Unknown Rx glimepiride 4 mg tablet 8 mg PO DAILY 09/16/23 Unkno wn History metoprolol tartrate 100 mg tablet 100 mg PO BID #180 t abs 05/10/24 Unknown Rx diltiazem HCl 180 mg 180 mg PO QDAY #90 caps 08/08 06/02 Unknown Rx capsule,extended release 24 hr Allergy/AdvReac Type Severity Reaction Status Date / Time amlodipine AdvReac ankle Verified 09/19/24 10:08 swelling Family History Other Adopted Social History Smoking Status: Never smoker alcohol intake: current details: occasional substance use type: does not use ROS ROS ED Constitutional Constitutional ED: Denies chills or fever(s) Eyes Eyes: Denies blurry vision or change in vision ENT ENT ED: Reports other Details: Denies epistaxis. Does complain of nose pain. ; Denies rhinorrhea or sore throat Cardiovascular Cardiovascular: Denies chest pain or palpitations Respiratory/Chest Respiratory/Chest: Denies cough or dyspnea Gastrointestinal Gastrointestinal: Denies nausea or vomiting Musculoskeletal Musculoskeletal: Denies arthralgias, myalgias or neck pain Integumentary Reports Abrasions Neurologic Neurologic: Denies headache(s), paresthesias or weakness Hematologic/Lymphatic Hematologic/Lymphatic: Denies easy bleeding or easy bruising EXAM Physical Exam Const Vital Signs: 09/19/24 10:07 09/19/24 10:07 Temperature 98 F Temperature Source Temporal Pulse Rate 79 Respiratory Rate 14 Blood Pressure 199/73 H Blood Pressure Mean 115 Pulse Ox 98 Oxygen Delivery Method Room Air Positive well nourished and well developed General Appearance ED: well developed and NAD HEENT Reports TM's clear HEENT Narrative: Forehead, nose with bilateral periorbital ecchymosis. trauma and tenderness Nose: Negative for septum abnormal Tympanic Membrane ED: Yes TM's clear Eyes PERRL and EOMs intact bilaterally General Eye ED: Yes other Other Details: There is no subconjunctival hemorrhage. There is no step-off with palpation infraorbital rim, there is no hyperesthesiain Frable nerve and there is no evidence of entrapment with upward gaze. Neck full ROM Neck Narrative: There is no posterior midline neck pain. General: Negative for tenderness Resp normal respiratory effort and clear to auscultation bilaterally Cardio regular rhythm Rate: regular rate Extremity normal to inspection and full ROM General Extremety ED: Negative for deformity or edema General Extremity: Negative for deformity or edema Neuro oriented x3, CN's II-XII intact bilaterally, moves all extremities, no focal motor deficits and no sensory deficits noted Neuro Narrative: There is no dysmetria. [place] Coma Scale: document GCS findings Spontaneous Obeys Commands Oriented 15 Sensorium / Orientation: alert Plantar Reflex: Downgoing: left and Upgoing (positive Babinski): right (No history of TIA or CVA.) Psych mental status grossly normal and thought process normal Skin No no wounds Trauma: abrasion MDM MDM MDM Narrative Medical decision making narrative: With head trauma, amnesia and Babinski sign on the right will obtain CT to rule out traumatic injury i.e. subdural hematoma, epidural hematoma, traumatic subarachnoid hemorrhage or intraparenchymal contusion. Since patient has no C-spine tenderness full active range of motion imaging of the neck was not obtained per Nexus criteria. Patient is on no antithrombotic or anticoagulant. Her medication list was reviewed. History & Record Review Discussion w/independent historian: Family (At exit interview there were family members that were present that were not initially. They states she had loss of consciousness for 30 to 60 seconds.) Additional record(s) reviewed:: Prior outpatient record (March 2013 for occupational therapy no other records available) Radiography Diagnostic Testing: Clinical Impression(s) from Imaging Studies Brain CT 09/19/24 10:21 IMPRESSION: CHRONIC CHANGES. NO ACUTE FINDINGS. Reading Location: [facility]-IR-1 Facial/Sinus 09/19/24 10:59 IMPRESSION: Nasal fracture. Soft tissue swelling of the nasal region. Reading Location: [facility]--1 Treatment and Re-Evaluation Narrative: Patient's questions were answered. She was tried to use bacitracin. She was told she does have a concussion Discharge Plan Triage Chief Complaint: Fall ED Provider: Timbo Yao Dx/Rx/DC Orders Clinical Impression: Concussion with loss of consciousness, Hyperlipidemia, Essential (primary) hypertension, Type 2 diabetes mellitus, Abrasion, face without infection, Closedfracture nasal bone Instructions: ED Abrasion, ED Concussion, ED Nose Fracture, with X-Ray Prescriptions: No Action metformin 750 mg tablet extended release 24 hr 750 mg PO QDAY hydrochlorothiazide 12.5 mg capsule 12.5 mg PO DAILY Patient Comments: take 1 capsule by mouth every morning losartan 100 mg tablet 100 mg PO DAILY 90 Days Qty: 90 3RF lisinopril 40 mg tablet 40 mg PO QDAY Qty: 90 3RF glimepiride 4 mg tablet 8 mg PO DAILY metoprolol tartrate 100 mg tablet 100 mg PO BID Qty: 180 3RF diltiazem HCl 180 mg capsule,extended release 24hr 180 mg PO QDAY Qty: 90 3RF Primary Care Provider: Ajay Sanchez Referrals: Ajay Sanchez MD [Primary Care Provider] - As Needed Matt Gavin MD [Med Staff - Active Staff] - 1-2 Weeks Activity Restrictions/Additional Instructions: 1. You will feel worse over the next 24 hours. 2. You will hurt in more places and you presently do. 3. You may have bruises where you did not initially. 4. Apply bacitracin ointment 2-3 times a day to your abrasions. 5. Apply ice 6-8 times where you are sore or have bruising. Print Language: Irish Disposition Disposition: Home, Self Care What to do if you have Problems For any increased pain, shortness of breath, bleeding, nausea or vomiting, chestpain, or any unexpected problems, contact your Primary Care Provider. Call [facility] ([phone]) or report to the closest Emergency Room. Call 911 if necessary. 09/19/24 1137 <Electronically signed by Timbo Yao MD> Cosigner Signature (if applicable): CC: Dr. Ajay Sanchez MD ~ Signed [facility] Work Phone: Evaluation note Note Date & Type Note Facility Evaluation note No assessment information availa ble [facility] Work Phone: Reason for referral (narrative) Note Date & Type Note Facility Reason for referral (narrative) No reason for referral information available [facility] Work Phone: Summary Purpose Family History No Family History Records Found Advance Directives Advance Directive Response Recorded Date/ Time Do you have a Healthcare Power of Engine Maintenance Mechanic? No September 19, 2024 11:43am Chief Complaint and Reason for Visit Chief Complaint Admit Date FACE September 19, 2024 10 :07am Additional Source Comments Goals (unrecognized section and content) Goals may be documented in a n alternate sectionGoals may be documented in an alternate sectionGoals may be documented in an alternate sectionGoals may be documented in an alternate section Care Teams (unrecognized sec tion and content) Team Status: Active Member Role Status Dates Dr. Iker Sanchez MD Family Provider Active Dr. Iker Sanchez MD Primary Care Provider Activ e Team Status: Inactive Member Role Status Dates Dr. Iker Sanchez MD Primary Care Provider, Atte nding Provider Active Team Status: Active Member Role/Relationship Status Dates Dr. Ajay Sanchez MD Primary Care Provider Acti ve Team Status: Inactive Member Role/Relationship Status Dates Dr. Ajay Sanhcez MD Primary Care Provider Acti ve Start: September 19, 2024 End: September 19, 2024 Dr. Timbo Yao MD Emergency Provider Active Sta rt: September 19, 2024 End: September 19, 2024 INFORMATION SOURCE (unrecogn ized section and content) DATE CREATED AUTHOR 12/02/2023 [facility] FOR RECORDS PERTAINING TO PATIENTS WHO ARE OR HAVE BEEN ENROLLED IN A CHEMICAL DEPENDENCY/SUBSTANCEABUSE PROGRAM, SOME INFORMATION MAY BE OMITTED. This clinical summary was aggregated from multiple sources. Caution should be exercised in using it in the provision of clinical care. This summary normalizes information from multiple sources, and as a consequence, information in this document may materially change the coding, format and clinical context of patient data. In addition, data may be omitted in some cases. CLINICAL DECISIONS SHOULD BE BASED ON THE PRIMARY CLINICAL RECORDS. [employer] provides no warranty or guarantee of the accuracy or completeness of information in this document.
== END | disposition home or self-care (01) ==
LOC: MFPLAB 09:44
PROVIDERS: PCP Family Medicine; Visit Provider Family Medicine
DX: E11.69 Type 2 diabetes mellitus with other specified complication (principal); E03.9 Hypothyroidism, unspecified
CPT/HCPCS: 36415; 80053; 80061; 84443

== ENCOUNTER → 2024-11-28 | Outpatient (CLI) | payer MEDICARE, SELFPAY ==
--- NOTE | 2024-11-28 14:04 | ECHOD_ITS ---
Reason For Study Reason For Study: Murmur Procedure This was a 2D Doppler, Color Flow transthoracic echocardiogram. Exam performed in department. Left Ventricle Normal LV size. The left ventricular ejection fraction is 65 %. No regional wall motion abnormalities noted. Right Ventricle Normal RV size. Normal systolic function. Atria The left atrium is mildly enlarged. Normal right atrium. Mitral Valve Normal mitral valve. Mild (1+) eccentric mitral valve insufficiency. Tricuspid Valve Normal tricuspid valve. Mild (1+) tricuspid valve insufficiency. Pulmonary artery systolic pressure is 40 mmHg. Aortic Valve Normal aortic valve. Trisinus/trileaflet aortic valve. Trivial eccentric aortic valve insufficiency. Pulmonic Valve Normal pulmonic valve. Great Vessels Normal aortic root. The pulmonary artery is normal size. Inferior vena cava collapse with respiration. Pericardium/Pleural No pericardial effusion. MMode/2D Measurements & Calculations LVIDd: 4.7 cm IVSd: 0.85 cm Ao root diam: 3.4 cm LVIDs: 2.9 cm LVPWd: 0.94 cm RVDd: 4.2 cm FS: 38.8 % LAV(MOD-bp): 65.9 ml LVAd ap4: 22.3 cm2 SV(MOD-sp4): 38.3 ml LAV(MOD-bp) Indexed: 39.2 ml/m2 LVLd ap4: 6.8 cm SI(MOD-sp4): 22.8 ml/m2 LAV(MOD-sp2): 62.0 ml EDV(MOD-sp4): 60.1 ml LAV(MOD-sp4): 65.4 ml EDV(sp4-el): 61.9 ml LVAs ap4: 11.7 cm2 LVLs ap4: 5.6 cm ESV(MOD-sp4): 21.8 ml ESV(sp4-el): 20.8 ml EF(MOD-sp4): 63.7 % EF(sp4-el): 66.4 % SV(sp4-el): 41.1 ml LA A4 area: 22.8 cm2 LA dimension(2D): 3.4 cm RA A4 area: 17.5 cm2 TAPSE: 3.0 cm Time Measurements MV dec time: 0.19 sec Doppler Measurements & Calculations MV E max leonard: 84.2 cm/sec Lat Peak E' Leonard: 5.7 cm/sec Med Peak E' Leonard: 6.2 cm/sec MV A max leonard: 108.8 cm/sec E/E' lat: 14.7 E/E' med: 13.5 MV E/A: 0.77 Ao V2 max: 162.3 cm/sec AI max leonard: 387.4 cm/sec MV dec slope: 443.3 cm/sec2 Ao max P.5 mmHg AI max P.1 mmHg Ao V2 mean: 119.0 cm/sec Ao mean P.0 mmHg AI dec slope: 205.5 cm/sec2 Ao V2 VTI: 34.0 cm AI P1/2t: 552.2 msec LV V1 max: 129.8 cm/sec PA V2 max: 125.3 cm/sec PI end-d leonard: 109.9 cm/sec LV V1 max P.7 mmHg PA V2 mean: 93.9 cm/sec TR max leonard: 295.7 cm/sec TR max P.1 mmHg ECHO/Echo Complete Interpretation Summary The left ventricular ejection fraction is 65 %. Normal LV size. Mild (1+) eccentric mitral valve insufficiency. Trivial eccentric aortic valve insufficiency. Pulmonary artery systolic pressure is 40 mmHg. Ordering Physician: Yehuda Gilbert Referring Physician: Ajay Sanchez Performed By: Erika White RDCS, RVT
== END | disposition home or self-care (01) ==
LOC: CVS 14:04
PROVIDERS: PCP Family Medicine; Referring Provider Internal Medicine Cardiovascular Disease; Visit Provider Internal Medicine Cardiovascular Disease
DX: R01.1 Cardiac murmur, unspecified (principal)
CPT/HCPCS: 93306